=== PATIENT | male | born 1980 | race Caucasian/White ===

== ENCOUNTER 2019-08-25 08:19 | Outpatient (CLI) | payer OTHER, SELFPAY ==
[2019-08-25 09:10] LABS: Basophils Absolute Auto 0.1 K/mm3 (0.0-0.1); Basophils Percent Auto 0.6 % (0.2-1.2); Eosinophils Absolute Auto 0.2 K/mm3 (0-0.3); Eosinophils Percent Auto 2.1 % (0-4.4); Hemoglobin 14.5 g/dL (14.0-18.0); Immature Granulocyte Absolute 0.03 K/mm3 (0.00-0.031); Immature Granulocyte Percent A 0.3 % (0-0.5); Lymphocytes Absolute Auto 2.16 K/mm3 (0.9-3.2); Lymphocytes Percent Auto 24.9 % (18.3-44.2); Mean Corpuscular Hemoglobin 28.5 pg (26-34); Mean Corpuscular Volume 86.4 fl (80-100); Mean Platelet Volume 9.3 fl (7.4-10.4); Monocytes Absolute Auto 0.5 K/mm3 (0.1-0.6); Neutrophils Absolute Auto 5.7 K/mm3 (1.3-6.7); Neutrophils Percent Auto 66.1 % (45.5-73.1); Platelet Count Result 411 k/mm3 (150-375); Red Blood Count 5.09 M/mm3 (4.6-6.20); Red Cell Distribution Width 13.4 % (11.5-14.5); White Blood Count 8.7 K/mm3 (4.5-10.0)
[2019-08-25 09:22] LABS: Hemoglobin A1C 6.4 % (<5.7)
[2019-08-25 09:29] LABS: Alanine Aminotransferase 24 U/L (4-50); Albumin Level 4.6 g/dL (3.5-5.1); Alkaline Phosphatase 83 U/L (38-126); Aspartate Amino Transferase 29 U/L (17-59); Bilirubin,Total 0.4 mg/dL (0.2-1.3); Blood Urea Nitrogen 15 mg/dL (9-20); Calcium 9.4 mg/dL (8.4-10.2); Carbon Dioxide 31 mmol/L (22-30); Chloride 100 mmol/L (98-107); Cholesterol 194 mg/dL (0-200); Estimated Glomerular Filt Rate > 60; Glucose 127 mg/dL (75-110); HDL Direct 28 mg/dL; Potassium 4.6 mmol/L (3.4-5.0); Sodium 137 mmol/L (137-145); Triglycerides 202 mg/dL (<150)
[2019-08-25 09:33] LABS: LDL Cholesterol Direct 130 mg/dL
[2019-08-25 09:34] LABS: Creatinine Urine 99.3 mg/dL
[2019-08-25 09:42] LABS: MALB Creatinine Ratio < 6.0 mg/g (0-30); Microalbumin Urine Random < 6.0 mg/L (0-16.7)
== END 2019-08-25 08:20 | disposition home or self-care (01) ==
PROVIDERS: PCP Family Medicine; Visit Provider Family Medicine
DX: E61.1 Iron deficiency (principal); E11.9 Type 2 diabetes mellitus without complications; E78.5 Hyperlipidemia, unspecified
CPT/HCPCS: 36415; 80053; 80061; 82043; 83036; 84443; 85025

== ENCOUNTER 2019-09-30 21:59 | Emergency (ER) | payer OTHER, SELFPAY ==
--- NOTE | ~2019-09-30 | CT_ITS ---
EXAMINATION: CT abdomen pelvis w con DATE: 10/01/2019 01:21 INDICATION: Generalized abdominal pain. Nausea and vomiting. TECHNIQUE: Computed tomography (CT) of the abdomen and pelvis was performed with 100 mL Omnipaque 350 intravenous contrast. Automated exposure control and iterative reconstruction technique were employe d. The dose-length product was 1383.31 mGy-cm. COMPARISON: None. FINDINGS: The visualized portions of the lung bases demonstrate mild atelectasis. No pleural effusion . The heart size is normal. No pericardial effusion. The liver, gallbladder, spleen, pancreas, adrena l glands, and kidneys are normal. There is a 3 mm stone in distal right ureter. There is mild right h ydroureter. There is prominent fat in the inguinal canals that may be small hernias. There is promine nt fat in the umbilicus that may be a small hernia. There are no dilated loops of bowel. The appendix is normal. There are no pathologically enlarged lymph nodes. There is no free intraperitoneal fluid. There is mild thoracolumbar spondylosis. IMPRESSION: 1. 3 mm stone in distal right ureter with mild right hydroureter. I called this result to Dr. Yanet kelly on 10/01/19 at 7:16 AM. Reviewed, dictated and finalized at location A. IMPRESSION: 1. 3 mm stone in distal right ureter with mild right hydroureter. I called percy s result to Dr. White on 10/01/19 at 7:16 AM.
[2019-09-30 22:00] VITALS: BP 135/100; PULSE 88; RESP 16; TEMP 36.7; O2SAT 98
[2019-09-30 22:21] LABS: Basophils Absolute Auto 0.1 K/mm3 (0.0-0.1); Basophils Percent Auto 0.4 % (0.2-1.2); Eosinophils Absolute Auto 0.2 K/mm3 (0-0.3); Eosinophils Percent Auto 1.2 % (0-4.4); Hematocrit 42.6 % (42.0-52.0); Hemoglobin 14.2 g/dL (14.0-18.0); Immature Granulocyte Absolute 0.06 K/mm3 (0.00-0.031); Immature Granulocyte Percent A 0.4 % (0-0.5); Lymphocytes Percent Auto 29.3 % (18.3-44.2); Mean Corpuscular HGB Conc 33.3 g/dl (32-36); Mean Corpuscular Hemoglobin 28.9 pg (26-34); Mean Corpuscular Volume 86.6 fl (80-100); Mean Platelet Volume 9.4 fl (7.4-10.4); Monocytes Absolute Auto 0.8 K/mm3 (0.1-0.6); Monocytes Percent Auto 5.3 % (2.6-8.5); Neutrophils Absolute Auto 9.5 K/mm3 (1.3-6.7); Neutrophils Percent Auto 63.4 % (45.5-73.1); Platelet Count Result 381 k/mm3 (150-375); Red Blood Count 4.92 M/mm3 (4.6-6.20); Red Cell Distribution Width 13.8 % (11.5-14.5)
[2019-09-30 22:33] LABS: Alanine Aminotransferase 28 U/L (4-50); Albumin Level 4.7 g/dL (3.5-5.1); Alkaline Phosphatase 99 U/L (38-126); Aspartate Amino Transferase 29 U/L (17-59); Bilirubin,Total 0.3 mg/dL (0.2-1.3); Blood Urea Nitrogen 11 mg/dL (9-20); Calcium 9.2 mg/dL (8.4-10.2); Carbon Dioxide 32 mmol/L (22-30); Chloride 100 mmol/L (98-107); Estimated CRCL calculation 144 ml/min; Estimated Glomerular Filt Rate > 60; Glucose 129 mg/dL (75-110); Lipase 46 U/L (23-300); Potassium 4.1 mmol/L (3.4-5.0); Sodium 138 mmol/L (137-145)
[2019-09-30 23:42] LABS: Add Urine Microscopic? YES; Appearance Urine Clear (Clear); Bilirubin Urine Negative (Negative); Blood Urine 2+ (Negative); Color Urine Yellow (Yellow); Glucose Urine UA Negative (Negative); Ketones Urine Negative (Negative); Leukocyte Esterase Ur Negative LEU/UL (Negative); Mucus Urine Few /lpf; Nitrate Urine Negative (Negative); Protein Urine Negative (Negative); RBC Urine 0-2 /hpf (0-2); Specific Grav Ur 1.019 (1.001-1.035); Squamous Epithelial Cell Urine Rare /hpf (Few); Urobilinogen Urine Negative mg/dL (<2.0); WBC Urine 0-3 /hpf
--- NOTE | 2019-10-01 00:20 | ED.ABDPAIN ---
HPI - Abdominal Pain General Chief Complaint: Abdominal Pain Stated Complaint: severe abd pain History of Present Illness HPI narrative: Patient presents with abdominal pain since 5 PM. Started in the middle than it was the right upper quadrant and epigastric. He has had chills and sweats but no fever. He cannot remember his last BM, he usually takes Imodium for his irritable bowel. He has had vomiting. He currently has nausea. Surgeries include bone spurs on the right shoulder tonsillectomy and pilonidal cyst. MD elicited complaint: abdominal pain Pertinent past history: other (Irritable bowel) Related Data Home Medications Medication Instructions Recorded Confirmed eluxadoline 100 mg tablet 100 mg PO BID 08/25/19 08/25/19 Allergies Allergy/AdvReac Type Severity Reaction Status Date / Time No Known Allergies Allergy Verified 09/30/19 22:13 Review of Systems Review of Systems: Narrative: CONSTITUTIONAL: Denies fever, but has had chills, and sweats. EYES: Denies visual changes, redness, or discharge. ENT: Denies rhinorrhea, congestion, sore throat, or otalgia. CARDIOVASCULAR: Denies chest pain, palpitations, or edema. RESPIRATORY: Denies cough or dyspnea. GASTROINTESTINAL: Has had abdominal pain, nausea, vomiting, but not diarrhea. GENITOURINARY: Denies dysuria or hematuria. SKIN: Denies rash or itching. MUSCULOSKELETAL: Denies back pain, joint pain, or myalgia. NEUROLOGIC: Denies headache, numbness, or weakness. PSYCHIATRIC: Denies anxiety or depression. All systems reviewed & are unremarkable except as noted in HPI and below PMFSH Past Medical History Medical History Anxiety disorder, unspecified Family history of premature CAD Fracture of other part of scapula, right shoulder, sequela H/O pilonidal cyst Hyperlipidemia Hypertension Type 2 diabetes mellitus without complication, without long-term current use of insulin Surgical History Surgical History H/O shoulder surgery Hx of adenoidectomy Hx of tonsillectomy Social History Social History (Updated 10/01/19 @ 00:22 by Berta Beth MD) Smoking status: Never smoker Second hand tobacco smoke exposure: Yes Smoking end date: 05/06/09 Alcohol intake: current Substance use: current Substance use type: marijuana Gender identity (if verbalized by the patient): Male Exam Narrative: Exam Narrative: GENERAL: Well-appearing, well-nourished, and in no acute distress. Overweight HEAD: Normocephalic, atraumatic. EYES: PERRLA and EOMI. ENT: Nares clear, no rhinorrhea or epistaxis. Mucous membranes moist. NECK: Supple. CHEST: Clear to auscultation. No respiratory distress. HEART: Regular rate and rhythm. No murmur heard. Normal peripheral pulses. ABDOMEN: Soft, nontender, nondistended, normal active bowel sounds. EXTREMITIES: Normal range of motion. No edema. SKIN: Warm, dry, no rash. NEURO: No focal deficits. Alert and oriented x3. PSYCH: Normal mood and affect. Course Reevaluation(s) Reevaluation #1: I went in to talk to the patient about the results of his CAT scan. He still has some abdominal pain. He has been on antidepressants for years, and some can cause abdominal pain. I recommended she try Bentyl for the spasms, and possibly Reglan for the nausea. Reglan came up is contradicted with SSRIs. We told him that SSRIs can sometimes cause abdominal pain, and to consider a consult about this. I warned him not to take the Reglan on the SSRIs together. Date: 10/01/19 Time: 02:21 Vital Signs Vital signs: Vital Signs Temperature 98.1 F 09/30/19 22:00 Pulse Rate 16 L 09/30/19 22:00 Respiratory Rate 16 09/30/19 22:00 Blood Pressure 135/100 H 09/30/19 22:00 Pulse Oximetry 98 09/30/19 22:00 Temperature 98.1 F 09/30/19 22:00 Pulse Rate 16 L 09/30/19 22:00 Respiratory Rate 16 09/30/19 22:00 Blood Pressure
[2019-10-01] MEDS: SODIUM CHLORIDE 0.9% IV 1,000 ML 999 ML IV CONT (00:37)
[2019-10-01] MEDS: ONDANSETRON INJ 4 MG/2 ML VIAL IV PUSH (00:37)
[2019-10-01] MEDS: MORPHINE SULFATE 4 MG/ML INJ IV PUSH (00:40)
[2019-10-01 02:26] VITALS: BP 122/53; PULSE 62; RESP 14; O2SAT 97
[2019-10-01] MEDS: KETOROLAC 15 MG/ML VIAL (*BKC) IV PUSH (02:42)
== END 2019-10-01 02:50 | disposition home or self-care (01) ==
PROVIDERS: Emergency Provider Emergency Medicine; PCP Family Medicine
DX: K58.9 Irritable bowel syndrome, unspecified (principal); D72.829 Elevated white blood cell count, unspecified; N13.2 Hydronephrosis with renal and ureteral calculous obstruction; E78.5 Hyperlipidemia, unspecified; I10 Essential (primary) hypertension; E11.9 Type 2 diabetes mellitus without complications; F41.9 Anxiety disorder, unspecified
CPT/HCPCS: 36415; 74177; 80053; 81001; 83690; 85025; 96361; 96365; 96375; 99284; J1885; J2270; J2405; J2543; J7030; Q9967

== ENCOUNTER 2020-05-29 13:07 | Emergency (ER) | payer OTHER, SELFPAY ==
[2020-05-29 13:25] VITALS: BP 186/93; PULSE 81; RESP 18; TEMP 36.9; O2SAT 100
[2020-05-29 13:26] VITALS: BP 186/93; PULSE 81; RESP 18; TEMP 36.9; O2SAT 100
--- NOTE | 2020-05-29 13:27 | ED.BACK ---
HPI - Back Pain/Injury General Chief Complaint: Back Pain/Injury Stated Complaint: Back Pain Time Seen by Provider: 05/29/20 13:33 Source: patient and RN notes reviewed Mode of arrival: ambulatory Limitations: no limitations History of Present Illness HPI Narrative: 40-year-old male presents with concern for right low back pain. Reports 5 to 6 days ago he was pulling something heavy out of the ground when he felt mild pain in his low back, reports the symptoms have worsened over the week. Reports taking Tylenol, Advil, tramadol with little relief. He denies loss of bowel or bladder function, perianal anesthesia, weakness in extremity, fever, abdominal pain. Reports history of asthma, denies increased cough, shortness of breath. MD elicited complaint: back pain Related Data Home Medications Medication Instructions Recorded Confirmed albuterol sulfate 90 mcg INHALATION DIRECTED 05/29/20 05/29/20 paroxetine HCl 40 05/29/20 simvastatin 10 mg PO DAILY 05/29/20 Allergies Allergy/AdvReac Type Severity Reaction Status Date / Time No Known Allergies Allergy Verified 12/08/19 10:16 Review of Systems Review of Systems: Narrative: CONSTITUTIONAL: Denies malaise, chills, sweats, or fever. EYES: Denies visual changes, redness, or discharge. ENT: Denies rhinorrhea, congestion, sinus pain, otalgia or sore throat. CARDIOVASCULAR: Denies chest pain, palpitations, or edema. RESPIRATORY: Denies cough or dyspnea. GASTROINTESTINAL: Denies abdominal pain, nausea, vomiting, diarrhea, bloody, or mucous stools. GENITOURINARY: Denies dysuria or hematuria. SKIN: Denies bruising, redness MUSCULOSKELETAL: Reports right low back pain. Denies joint pain, or myalgia. NEUROLOGIC: Denies numbness, weakness, or headache. All systems reviewed & are unremarkable except as noted in HPI and below PMFSH Past Medical History Medical History (Updated 05/29/20 @ 13:42 by Michaelle Loving NP) Anxiety disorder, unspecified Family history of premature CAD Fracture of other part of scapula, right shoulder, sequela H/O pilonidal cyst Hyperlipidemia Hypertension Type 2 diabetes mellitus without complication, without long-term current use of insulin Surgical History Surgical History H/O shoulder surgery Hx of adenoidectomy Hx of tonsillectomy Family History Family History Mother Family history of mental disorder Hypertension Father Hypertension Family history of elevated blood lipids Social History Social History Smoking status: Current some day smoker Second hand tobacco smoke exposure: Yes Smoking end date: 05/06/09 Alcohol intake: current Substance use: current Substance use type: marijuana Gender identity (if verbalized by the patient): Male Comments At time of signature, agree with nursing past medical, surgical, social and family history. There is no relevant family history pertinent to the presenting complaint Exam Narrative: Exam Narrative: GENERAL: Well-appearing, well-nourished, and in no acute distress. HEAD: Normocephalic, atraumatic. EYES: PERRLA and EOMI. NECK: Supple. No lymphadenopathy. CHEST: Clear to auscultation. No respiratory distress. HEART: Regular rate and rhythm. Distal pulses palpable and equal, cap refill <3 seconds ABDOMEN: Soft, nontender, nondistended, normal active bowel sounds, no palpable or pulsatile masses. No CVA tenderness MUSCULOSKELETAL: Normal range of motion and strength in all extremities; 5/5 strength with hip flexion and extension, dorsiflexion and extension, knee flexion and extension, plantar flexion and extension. Normal sensation in dermatomal distributions with sensitivity to light touch and pain. No midline back tenderness to palpation. No paraspinal tenderness. Transfers from lying to sitting to standing.
== END 2020-05-29 13:45 | disposition home or self-care (01) ==
PROVIDERS: Emergency Provider Nurse Practitioner; PCP Family Medicine
DX: M54.5 Low back pain (principal); F17.200 Nicotine dependence, unspecified, uncomplicated; E78.5 Hyperlipidemia, unspecified; I10 Essential (primary) hypertension; E11.9 Type 2 diabetes mellitus without complications; J45.909 Unspecified asthma, uncomplicated
CPT/HCPCS: 99213; G0463

== ENCOUNTER 2020-07-12 08:02 | Outpatient (CLI) | payer OTHER, SELFPAY ==
--- NOTE | ~2020-07-12 | XR_ITS ---
EXAMINATION: XR shoulder LT min 2V DATE: 07/12/2020 08:16 INDICATION: Left shoulder pain. TECHNIQUE: 4 views of left shoulder were obtained. COMPARISON: None. FINDINGS: Bone alignment is normal. No fracture. Joint spaces are well maintained. IMPRESSION: 1. Normal left shoulder. Reviewed, dictated and finalized at location A. ANIC DRIVER IMPRESSION: 1. Normal left shoulder.
== END 2020-07-12 08:03 | disposition home or self-care (01) ==
LOC: ANHIMG 08:05
PROVIDERS: PCP Family Medicine; Visit Provider Family Medicine
DX: M25.512 Pain in left shoulder (principal)
CPT/HCPCS: 73030

== ENCOUNTER 2020-08-03 08:00 | Outpatient (CLI) | payer OTHER, SELFPAY ==
--- NOTE | ~2020-08-03 | NM_ITS ---
EXAMINATION: NM stress w perf spect multi DATE: 08/03/2020 11:33 INDICATION: Chest pain TECHNIQUE: Rest images were obtained following intravenous administration of 11.22 mCi Tc99m tetrofos min (Myoview). The patient performed an exercise activity. At peak exercise, 33.3 mCi Tc99m tetrofosm in (Myoview) was administered intravenously, and stress images were obtained. Data was reconstructed into short axis and horizontal and vertical long axis SPECT images. Gated SPECT images were also obta ined. COMPARISON: None. FINDINGS: There is normal left ventricular perfusion without definite evidence of reversible or fixed perfusion abnormality to suggest ischemia or infarction. There is normal left ventricular chamber size, wall motion and ejection fraction. Left ventricular ejection fraction measures 67%. IMPRESSION: 1. Normal myocardial perfusion at rest and during stress. 2. Left ventricular ejection fraction measuring 67%. Reviewed, dictated and finalized at location A.
--- NOTE | 2020-08-03 08:53 | EST_ITS ---
Patient Info Name: Karlie Gilliam Age: 40 years : 1980 Gender: Male Ht: 75 in Wt: 252 lbs BSA: 2.49 m2 HR: 57 bpm BP: 177 / 72 mmHg Exam Date: 08/03/2020 9:47 AM Exam Location: [facility] Stress Patient Status: Outpatient Admit Date: 08/03/2020 Staff Ordering Physician: Judah Pérez DO Attending Provider: Judah Pérez DO Exercise Technologist: Taylor Hodge CT Exercise Physician: Judah Pérez DO Exam Type: CA stress test treadmill w NM Study Info Indications R07.9 - Chest pain, unspecified A nuclear stress test was performed. Summary 1. 1. Negative Jack exercise stress test for ischemic ST changes by ECG criteria. 2. 2. Good functional capacity, achieving 12 METs of workload. 3. 3. Baseline hypertension with hypertensive response to exercise. 4. 4. Appropriate HR response to exercise. 5. 5. Appropriate HR recovery at 1 minute post exercise. 6. 6. Nuclear scan to follow and will be reported separately. Please correlate with it. 7. 6. Patient informed of the above results. Protocol: Jack Stress ECG Details Stage: REST Duration (min): 2 min : 42 sec Speed (mph): 0.0 Grade (%): 0 HR (bpm): 58 SBP (mmHg): 177 DBP (mmHg): 72 METS: --- Stage: REST Duration (min): 5 min : 51 sec Speed (mph): 0.0 Grade (%): 0 HR (bpm): 73 SBP (mmHg): 177 DBP (mmHg): 72 METS: --- Stage: STAGE 1 Duration (min): 1 min : 0 sec Speed (mph): 1.7 Grade (%): 10 HR (bpm): 87 SBP (mmHg): 177 DBP (mmHg): 72 METS: --- Stage: STAGE 1 Duration (min): 2 min : 0 sec Speed (mph): 1.7 Grade (%): 10 HR (bpm): 92 SBP (mmHg): 177 DBP (mmHg): 72 METS: --- Stage: STAGE 1 Duration (min): 3 min : 0 sec Speed (mph): 1.7 Grade (%): 10 HR (bpm): 92 SBP (mmHg): 177 DBP (mmHg): 72 METS: --- Stage: STAGE 2 Duration (min): 1 min : 0 sec Speed (mph): 2.5 Grade (%): 12 HR (bpm): 105 SBP (mmHg): 181 DBP (mmHg): 66 METS: --- Stage: STAGE 2 Duration (min): 2 min : 0 sec Speed (mph): 2.5 Grade (%): 12 HR (bpm): 110 SBP (mmHg): 197 DBP (mmHg): 69 METS: --- Stage: STAGE 2 Duration (min): 3 min : 0 sec Speed (mph): 2.5 Grade (%): 12 HR (bpm): 111 SBP (mmHg): 197 DBP (mmHg): 69 METS: --- Stage: STAGE 3 Duration (min): 1 min : 0 sec Speed (mph): 3.4 Grade (%): 14 HR (bpm): 121 SBP (mmHg): 206 DBP (mmHg): 68 METS: --- Stage: STAGE 3 Duration (min): 2 min : 0 sec Speed (mph): 3.4 Grade (%): 14 HR (bpm): 131 SBP (mmHg): 206 DBP (mmHg): 68 METS: --- Stage: STAGE 3 Duration (min): 3 min : 0 sec Speed (mph): 3.4 Grade (%): 14 HR (bpm): 132 SBP (mmHg): 215 DBP (mmHg): 65 METS: --- Stage: STAGE 4 Duration (min): 1 min : 0 sec Speed (mph): 4.2 Grade (%): 16 HR (bpm): 152 SBP (mmHg):
== END 2020-08-03 08:01 | disposition home or self-care (01) ==
PROVIDERS: PCP Family Medicine; Visit Provider Internal Medicine Cardiovascular Disease
DX: R07.89 Other chest pain (principal)
CPT/HCPCS: 78452; 93017; A9502

== ENCOUNTER 2020-08-23 09:44 | Outpatient (CLI) | payer OTHER, SELFPAY ==
--- NOTE | ~2020-08-23 | MR_ITS ---
EXAMINATION: MR shoulder LT wo con DATE: 08/23/2020 10:59 INDICATION: Left shoulder pain. TECHNIQUE: Magnetic resonance imaging (MRI) of the left shoulder was performed without intravenous co ntrast. Sequences included axial PD-weighted FS FSE, coronal oblique PD-weighted FS FSE, coronal obli que T2-weighted FS FSE, sagittal PD-weighted FS FSE, and sagittal T1-weighted SE. COMPARISON: None. FINDINGS: Coracoacromial arch: The acromion undersurface is curved in morphology (type II). Small anterior plantar calcaneal spur at the acromial insertion of the otherwise normal coracoacromial ligament. Minimal acromioclavicular os teoarthritis. Rotator cuff: The supraspinatus, infraspinatus and teres minor tendons are normal. The subscapularis tendon is norm al. Normal rotator cuff muscle bulk and signal. Biceps tendon, glenoid labrum and glenohumeral cartilage: Long head of the biceps tendon is normal. Glenoid labrum is normal. Glenohumeral cartilage is normal. Fluid: Physiologic amount of fluid in the glenohumeral joint and biceps tendon sheath. No loose osteochondra l bodies. No abnormally increased fluid in the subacromial/subdeltoid bursa to suggest bursitis. Bones/other: There is prominent marrow edema at the lateral head of the left clavicle which is disproportionate to the minimal osteoarthritis and which also spares the acromion which argues against a joint centered etiology. The trabecular pattern in the region of edema appears to remain intact on both the MRI imag es as well as the recent prior radiographs with no evident lytic or sclerotic bone lesions. 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 Otherwise normal marrow sign al throughout. No fracture. A few normal-sized left axillary lymph nodes. IMPRESSION: 1. Prominent marrow edema at the lateral head of the left clavicle as detailed above most suspicious for distal clavicular osteolysis which can be due to prior trauma or repetitive microtrauma as can be seen with manual labor or weight lifting. Reviewed, dictated and finalized at location A. IMPRESSION: 1. Prominent marrow edema at the lateral head of the left clavicle as detailed above most suspicious for distal clavicular osteolysis which can be due to prio r trauma or repetitive microtrauma as can be seen with manual labor or weight l ifting.
== END 2020-08-23 09:45 | disposition home or self-care (01) ==
PROVIDERS: PCP Family Medicine; Visit Provider Orthopaedic Surgery
DX: G56.00 Carpal tunnel syndrome, unspecified upper limb (principal); M25.512 Pain in left shoulder; M79.89 Other specified soft tissue disorders
CPT/HCPCS: 73221

== ENCOUNTER → 2020-09-26 03:35 | Outpatient (CLI) | payer OTHER, SELFPAY ==
[2020-09-28 13:00] LABS: SARS-CoV-2 RNA PCR Negative
== END ==
PROVIDERS: PCP Family Medicine; Visit Provider Orthopaedic Surgery
DX: Z01.812 Encounter for preprocedural laboratory examination (principal); Z20.822 Contact with and (suspected) exposure to COVID-19
CPT/HCPCS: 36415; 80048; C9803; U0003; U0005

== ENCOUNTER 2020-09-26 08:46 | Outpatient (CLI) | payer OTHER, SELFPAY ==
[2020-09-26 09:21] LABS: Anion Gap 5 mmol/L (8-16); Blood Urea Nitrogen 12 mg/dL (9-20); Calcium 9.5 mg/dL (8.4-10.2); Carbon Dioxide 28 mmol/L (22-30); Chloride 105 mmol/L (98-107); Estimated Glomerular Filt Rate > 60; Glucose 98 mg/dL (75-110); Potassium 4.2 mmol/L (3.4-5.0); Sodium 138 mmol/L (137-145)
== END 2020-09-26 08:47 | disposition home or self-care (01) ==
LOC: ANHSURGERY 08:51
PROVIDERS: Anesthesiology; PCP Family Medicine; Visit Provider Orthopaedic Surgery
DX: E11.9 Type 2 diabetes mellitus without complications (principal); Z01.818 Encounter for other preprocedural examination
CPT/HCPCS: 36415; 80048

== ENCOUNTER 2020-09-29 00:45 | Day surgery (SDC) | payer OTHER, SELFPAY ==
[2020-09-23 10:06] VITALS: BMI 34.4
--- NOTE | 2020-09-28 10:31 | WPDANESEPPF ---
Anes - Initial Pre Proc Eval Procedure: Operation Date: 09/29/20 10:30 Proposed Procedures p Open Reduction Internal Fixation Bimalleolar Fracture, Right Ankle - William Salmeron MD Date/Time: 09/28/20 10:31 Surgeon: William Salmeron MD Pre Op Diagnosis: bimalleloar right ankle fx Patient Data Age: 40 Gender: M Height: 1.83 m Weight: 115.21 kg Allergies Allergy/AdvReac Type Severity Reaction Status Date / Time No Known Allergies Allergy Verified 09/29/20 09:01 Home Medications Medication Instructions Recorded Confirmed Type methylcellulose (laxative) 500 mg 500 mg PO BID 06/28/20 09/23/20 History tablet omeprazole 40 mg capsule,delayed 40 mg PO DAILY #90 cap 06/28/20 09/23/20 Rx release albuterol sulfate 90 mcg/actuation 2 puff INHALATION Q4-6H PRN g 08/15/20 09/23/20 History aerosol inhaler aspirin 81 mg chewable tablet 81 mg PO DAILY 08/15/20 09/23/20 History blood sugar diagnostic #100 ea 08/15/20 Rx blood-glucose meter #1 ea 08/15/20 History eluxadoline 100 mg tablet 100 mg PO BID 08/15/20 09/23/20 History sildenafil 100 mg tablet 100 mg PO DAILY PRN #30 tablet 08/16/20 09/23/20 Rx alprazolam 1 mg tablet 1 mg PO BID PRN #60 tablet 09/19/20 09/23/20 Rx metformin 500 mg PO DAILY 09/23/20 09/23/20 History metoprolol succinate 25 mg PO DAILY 09/23/20 09/23/20 History paroxetine HCl 40 mg PO DAILY 09/23/20 09/23/20 History simvastatin 20 mg PO HS 09/23/20 09/23/20 History oxycodone-acetaminophen 5 mg-325 1 - 2 tablet PO Q4-6H PRN #40 09/24/20 09/24/20 Rx mg tablet tablet Patient hx anesthesia problems: none Family hx anesthesia problems: none PMFSH Past Medical History Medical History (Updated 09/28/20 @ 10:31 by Damian Carlson DO) Anxiety disorder, unspecified Asthma Chest pain Chest pain at rest Diabetes Diarrhea Dyslipidemia Essential (primary) hypertension Family history of premature CAD Fracture of other part of scapula, right shoulder, sequela H/O pilonidal cyst Hyperlipidemia Hypertension Obesity Sleep apnea Smoking Tobacco abuse Type 2 diabetes mellitus without complication, without long-term current use of insulin Surgical History Surgical History (Updated 08/15/20 @ 08:30 by Jillian Gillespie MA) H/O shoulder surgery Rt shoulder Hx of adenoidectomy Hx of tonsillectomy Family History Family History Mother Family history of mental disorder Hypertension Father Hypertension Family history of elevated blood lipids Social History Social History Smoking packs per day: 1 Smoking cigarettes per day: 20.0 Years smoked: 10 Smoking pack-years: 10.00 Smoking status: Current every day smoker Tobacco type: cigarettes Second hand tobacco smoke exposure: Yes Smoking end date: 05/06/09 Alcohol intake: current Drinks per week: 1 Alcohol use details: 5/MONTH Substance use: current Substance use type: marijuana Last use: 09/19/20 Living arrangements: with family Gender identity (if verbalized by the patient): Male Spiritual care concerns: No Agree to blood products: Yes Anes - Eval Final PreProcedure Day of Procedure 09/28/20 10:31 Patient weight: obese Heart: regular rate and rhythm Lungs: clear to auscultation and normal air movement Airway: Mallampati scale class II Neurological: alert and oriented Last oral intake: >/= 8 hours ASA classification: III Emergent: no Anesthetic plan: proceed Anesthesia type and monitoring: general LMA and standard monitoring Informed Consent: The patient's anesthetic plan and its attendant risks and benefits were discussed with the patient/family/POA. Questions were solicited and answers provided to the satisfaction of the patient/family/POA.
[2020-09-29] VITALS (10 sets, daily range): BP systolic 119–155; BP diastolic 60–90; PULSE 55–70; RESP 12–20; TEMP 36.2; O2SAT 97–100; BMI 33.9
--- NOTE | ~2020-09-29 | XR_ITS ---
EXAMINATION: XR surgery orthopedic DATE: 09/29/2020 13:19 INDICATION: ORIF right bimalleolar fracture. TECHNIQUE: 3 fluoroscopic spot images of the right ankle were obtained during procedure performed by Dr. Salmeron. Radiologist was not present for the imaging or procedure. The amount of fluoroscopy t rosalba used during this procedure was 1.8 minutes. COMPARISON: 09/22/2020 FINDINGS: Interval open reduction internal fixation of the Christiansen C bimalleolar fractures at the right ankle whi ch is now in near-anatomic alignment. The medial malleolar fractures fixed with a pair of cannulated lag screws. The distal metadiaphyseal fracture of the fibula is fixed with an interfragmentary screw and lateral plate and screws. No addition there is a tightrope type syndesmotic fixation with metalli c buttons at the medial side of a lucent tract extending across the distal tibial and fibular metaphy seal regions. Congruent ankle mortise with normal joint space. IMPRESSION: 1. Essentially anatomic alignment post open reduction internal fixation of the right ankle bimalleola r fracture. Reviewed, dictated and finalized at location A. IMPRESSION: 1. Essentially anatomic alignment post open reduction internal fixation of the right ankle bimalleolar fracture.
--- NOTE | 2020-09-29 07:53 | WPDANESPNB ---
Anes - Peripheral Nerve Block Date/Time: 09/29/20 07:53 I have discussed with the patient/family/POA the placement of a peripheral nerve block for post-operative pain management, including associated risks, benefits, complications, and side effects. Alternative methods of post-operative analgesia were detailed. Questions were solicited and answers provided to the satisfaction of the patient/family/POA. Time-Out: A pre-procedural Time-Out was completed immediately before starting the procedure and confirmed: Patient Identification, Site, Procedure, Patient Position and the Availability of Requisite Equipment. Clinical Indications: Acute post-operative pain management requested by the operative surgeon. Nerve Block Insertion Note Anes-nerve block: posterior fossa sciatic left and adductor canal left Patient position: supine (for adductor canal) and other (right lateral for popliteal) Skin prep: chlorhexidine Needle: 22 gauge, stimulating, insulated echogenic needle. Needle length: 80 mm Technique: nerve stimulation lost at (mA) (for popliteal lost at 0.2) and ultrasound Injectate: bupivacaine 0.5% with epi 5 mcg/ml (20 mL for popliteal, 10 mL for adductor canal (no epi)) Observations: tolerated well Complications: none Procedure start time:: 1112 Procedure end time:: 111
[2020-09-29] MEDS: ACETAMINOPHEN 500 MG TABLET 1000 MG PO (09:11)
[2020-09-29] MEDS: LACTATED RINGERS 1,000 ML 30 ML IV CONT ×2 (09:19→13:38)
[2020-09-29] MEDS: KETOROLAC 15 MG/ML VIAL (*BKC) IV PUSH (09:23)
--- NOTE | 2020-09-29 09:25 | SUR.PREOP ---
3903- Call to Dr. Salmeron to clarify if he would like patient's splint removed from right lower extremity for procedure and shave/scrub to be performed. Per Dr. Salmeron remove splint and prep right ankle with shave and scrub.
[2020-09-29 09:34] LABS: Glucose Point of Care 118 mg/dl (65-105)
--- NOTE | 2020-09-29 10:00 | SUR.PREOP ---
1000- Notified patient Karlie and spouse Florence that OR is running approximately 30 minutes behind. Patient and spouse verbalized understanding.
--- NOTE | 2020-09-29 11:06 | WPDHPUPDATE1 ---
History and Physical Update Update Date/Time: 09/29/20 11:06 History and Physical has been reviewed, including an updated exam of the patient. Swelling is mild to moderate. He has an 3.5 mm diameter area of macerated skin on the plantar aspect of the heel slightly posteromedial. No erythema. Patient advise of the condition, and instructed to avoid any pressure on the heel during the postoperative period. Risks, benefits, and alternatives have been discussed and questions answered. Patient agrees to proceed with procedure.
[2020-09-29] MEDS: ceFAZolin 2 GM/D5W 50 ML 2 GM/50 ML BAG IVPB (11:41)
--- NOTE | 2020-09-29 16:03 | W.PM.PROC2 ---
Procedure Note - Detailed Date of Procedure 09/29/20 Pre-op Diagnosis 1. Bimalleolar right ankle fx-dislocation 2. Tibia-fibula syndesmosis sprain Post-op Diagnosis same Procedure Performed 1. Open reduction and internal fixation of the right ankle bimalleolar fracture with fixation of the lateral and medial malleoli 2. Open reduction and internal fixation of the tibia fibula syndesmosis with 2 tight rope suture buttons. Surgeon William Salmeron MD P[employer] Creasing Machine Operator Sariah Huddleston PA-C Anesthesia general and regional Description of Procedure A general anesthetic was administered. The limb was prepped and draped in the usual sterile fashion with a well-padded tourniquet high on the thigh. A bump was placed under the hip. The limb was exsanguinated and the tourniquet inflated to 300 millimeters of mercury during the procedure. A longitudinal incision was created at the distal fibula. Careful dissection was carried down to bone. Perineal nerve branches were protected. The fracture was carefully exposed. Callus and debris was irrigated from the wound. The fracture was brought out to length. Reduction was accomplished with the reduction forceps. An A-P lag screw was placed. The fixation plate fit anatomically. Fixation was performed with a combination of cortical and cancellous screws. The medial malleolus was exposed with a longitudinal incision. The fracture was cleared of debris and irrigated. Anatomic reduction was obtained with the reduction tool. Biplanar fluoroscopy was used to assess the fracture reduction and guide placement of the K-wire. Two K-wires were placed parallel across the fracture site. The screw lengths were measured and drilled distally only. The long, partially threaded screws were placed, and the K-wires removed. The tibia -fibula syndesmosis was confirmed to be unstable; primarily dynamically. A syndesmosis tight rope was placed through the fibular plate across the syndesmosis. The button was deployed medially on the bone. The sutures were secured and cut flush with the button. Fluoroscopy was used throughout the procedure to confirm anatomic reduction and appropriate placement of the implants. The tourniquet was released. Meticulous hemostasis was obtained. Wound was closed in layers with 2-0 Vicryl suture 3-0 Monocryl suture and bonita. A sterile splint with padding was applied. The patient was extubated and brought to the recovery room in stable condition. There were no complications. Implants Arthrex distal fibular anatomic plate. Single AP lag screw. Arthrex syndesmosis tight rope button fixation. 4.0 mm cannulated screws x2 medially at 40 mm length. Estimated Blood Loss 20 Drains No Complications No immediate complications Condition stable Disposition same day
[2020-10-04 09:35] LABS: Glucose Point of Care 98 mg/dl (65-105)
== END 2020-09-29 15:54 | disposition home or self-care (01) ==
PROVIDERS: PCP Family Medicine; Visit Provider Orthopaedic Surgery
PROC: (CPT 27814; principal; 2020-09-29 10:30)
DX: S82.841A Displaced bimalleolar fracture of right lower leg, initial encounter for closed fracture (principal); S93.431A Sprain of tibiofibular ligament of right ankle, initial encounter; G89.18 Other acute postprocedural pain; X58.XXXA Exposure to other specified factors, initial encounter; I10 Essential (primary) hypertension; E11.9 Type 2 diabetes mellitus without complications; E78.5 Hyperlipidemia, unspecified; J45.909 Unspecified asthma, uncomplicated; F41.9 Anxiety disorder, unspecified; G47.30 Sleep apnea, unspecified; F17.210 Nicotine dependence, cigarettes, uncomplicated; F12.90 Cannabis use, unspecified, uncomplicated; E66.9 Obesity, unspecified; Z68.39 Body mass index [BMI] 39.0-39.9, adult; Z79.51 Long term (current) use of inhaled steroids; Z79.84 Long term (current) use of oral hypoglycemic drugs; Z79.891 Long term (current) use of opiate analgesic
CPT/HCPCS: 64447; 64445; 27814; 27829; 82948; A9270; C1713; C1769; J0690; J1170; J1885; J2250; J2704; J3010; J7120

== ENCOUNTER 2021-03-13 17:00 | Outpatient (RCR) | payer OTHER, SELFPAY ==
--- NOTE | 2021-01-31 17:31 | PTOPEVAL ---
PHYSICAL THERAPY EVALUATION AND PLAN OF CARE Thank you for referring Karlie Gilliam to [facility].? The patient is scheduled to be seen for therapy?1x/week for 6 weeks. Please review, sign, date and return this plan of care CAITLIN. I agree with and certify that the following plan of care is medically necessary. Referring Physician Date Attending Provider: William Salmeron MD Evaluation Outpatient Past Medical History Neurological History Hx Neurological Disorders No Significant History Cardiovascular History Hx Hypercholesterolemia Yes Hx Hypertension Yes Respiratory History Hx Asthma Yes Hx Sleep Apnea Yes: WEARS CPAP Gastrointestinal History Hx Gastroesophageal Reflux Disease Yes Hx Irritable Bowel Yes Genitourinary History Hx Genitourinary Disorders No Significant History Musculoskeletal History Hx Crutches or Walker Use Yes: CRUTCHES Query Text:If Yes, Enter Crutches, Walker, or Both in the Comment Hx Fractures Yes: RT ANKLE, RT SHOULDER Hx Orthopedic Surgery Yes: RT SHOULDER Hx Other Musculoskeletal Disorders Yes: CARPAL TUNNEL SYNDROME, LT SHOULDER BONE SPUR Hematological History Hx Hematological Disorders No Significant History Endocrine History Hx Diabetes Yes HEENT History Hx Tonsillectomy Yes Integumentary History Hx Skin Disorders No Significant History Reproductive History Hx Reproductive Disorders No Significant History Psychosocial History Hx Anxiety Yes Hx Depression Yes Pain History History of Any Previous or Ongoing No Significant History Instance of Pain Anesthesia History Hx Anesthesia Reactions No Significant History Diagnosis left shoulder pain Onset 06/2020 Subjective Information Is here today for complaint of Query Text:As Reported By Patient/ left shoulder pain diagnosed Family as an impingement. Limited range of motion that is painful and limited ADLs. Dressing is difficult and painful and lifting items is difficult and painful. prefers to hold hands overhead Self Report Pain Assessment Left Shoulder(s) Reported Pain Level 3 Pain Description Sharp,Stabbing Greatest Pain Intensity 5 Pain Score Pain Score 3: Self Report Interventions Used Interventions Used By Clinicians Exercise Pain Relief Interventions Used By Inactivity/Rest Patient Upper Extremity Range of Motion Scapular/ Shoulder Range of Motion Left S
--- NOTE | 2021-02-20 16:55 | PCPTNOTE ---
Patient did not show up for scheduled appointment this date; called patient who answered the phone stating he forgot reminded for next appointment.
--- NOTE | 2021-03-13 17:32 | PTOPEVAL ---
PHYSICAL THERAPY DISCHARGE NOTE Thank you for referring Karlie Gilliam to [facility].? Please review, sign, date and return this plan of care CAITLIN. I agree with and certify that the following plan of care is medically necessary. Referring Physician Date Attending Provider: William Salmeron MD Discharge Diagnosis left shoulder pain Onset 06/2020 Subjective Information Still has some difficulty Query Text:As Reported By Patient/ getting clothes on - Family especially over head dressing; still has pain depending on what he is doing. States that it is doing better than prior to therapy. Self Report Pain Assessment Left Shoulder(s) Reported Pain Level 1 Pain Description Sharp,Stabbing Pain Score Pain Score 1: Self Report Interventions Used Interventions Used By Clinicians Exercise,Manual Therapy Techniques Pain Relief Interventions Used By Inactivity/Rest,Medication Patient Upper Extremity Range of Motion Scapular/ Shoulder Range of Motion Left Shoulder Flexion - Active 150 Shoulder Abduction - Active 140 Shoulder Medial Rotation - Active L3 Query Text:Reach Behind the Back Shoulder Lateral Rotation - Active T2 Query Text:Reach Behind the Head Scapular/Shoulder Range of Motion painful at end range Comments Upper Extremity Muscle Strength Testing Scapular/Shoulder Left Shoulder Flexion Strength 4+ Good + Shoulder Abduction Strength 4+ Good + Shoulder Medial Rotation Strength 5 Normal Shoulder Lateral Rotation Strength 5 Normal General Exercise General Exercises Side Left Exercise Location shoulder Exercise Type Active,Resistive,Stretching Exercise Description -pulleys behind the back Query Text:Record Sets, Reps, internal rotation [id number] Resistance, and Position -supine on full foam roll: pec stretch and alternating shoulder flexion -right sidelying arm sweep x8 reps -sidelying sleeper stretch on left Bike Exercise Bike Extremity Bilateral Upper Type of Bike Airdyne Duration (minutes) 4 Manual Therapy Manual Therapy Side Left Manual Therapy Location Shoulder Patient Position Supine Manual Therapy Treatment Grade 3 Mobilization,Grade 4 Mobilization Manu
== END 2021-03-14 11:51 | disposition home or self-care (01) ==
LOC: ANHPT 17:00
PROVIDERS: PCP Family Medicine; Visit Provider Orthopaedic Surgery
DX: M25.512 Pain in left shoulder (principal)
CPT/HCPCS: 97110; 97140; 97162

== ENCOUNTER 2021-04-04 01:17 | Day surgery (SDC) | payer OTHER, SELFPAY ==
[2021-03-24 10:55] VITALS: BMI 35.2
--- NOTE | 2021-03-24 10:59 | PC.NURSE ---
Report to the Outpatient Waiting Room, entrance under the green pavilion located off [facility], at time 0830 on date 04/04/21. OR Time: 1030. - You and your visitor will be asked a series of questions to screen for COVID 19 for your protection. - A mask is required within the hospital. - Only one visitor is allowed at this time. Patient visitors will be guided where to wait when not with patient. Preoperative COVID Testing Requirements: No COVID Test needed if: (proof is required; if not received patient will have Rapid Test prior to entry) - Patient has received COVID Vaccine at least 14 days prior to procedure date or - Patient has positive COVID test result within last 90 days of surgery date. COVID Test needed if above criteria is not met If not COVID vaccinated a COVID test must be conducted within 72 hours of surgery and patient is asked to isolate self from time of testing until procedure. You will go to the [employer] [facility] for your COVID testing. The [employer] [facility] site is located at the corner of [address] [facility]. You will only be called if COVID results are positive and your surgeon may reschedule your elective surgery date. Patients may have clear liquids (water, carbonated beverages, clear teas, apple juice) until 3 hours prior to surgery with a maximum of 20 ounces. - No food from midnight until time of surgery - Infants may have breast milk until 4 hours before surgery, infant formula 6 hours prior to surgery. - Children will be allowed to drink immediately following surgery. If applicable, please bring a bottle or sippy cup to assist with drinking. Juice, water, soda, and popsicles are readily available. For infants on formula, please bring formula the day of surgery. Pacifiers are allowed. Take the following medications with a SIP of water the morning of surgery: ALBUTEROL, XANAX, METOPROLOL, PAROXETINE Medications to discontinue per physician: ASPIRIN Date to take last dose: 03/27/21 (PER DR. RIZZO) Please no make-up, nail luxembourger, hairspray, perfume, deodorant, or body powder the day of surgery. No jewelry (including any body piercings) or valuables the day of surgery, leave them at home. Please take a shower or bath the night before, or the morning of, surgery with an antibacterial soap. Wear comfortable, loose fitting clothing. Children are encouraged to wear pajamas. - Jewelry must be removed prior to entering the operating room. Rings and piercings that are not removed may be cut off. - The hospital will not accept responsibility for valuables. - Please leave all valuables, including medications, at home the day of surgery. If you are going home after surgery, a licensed paratransit driver must drive you home. - NO public transportation without another adult. - We recommend that an adult stay with you for 24 hours following discharge. - We also recommend that you do not drive, make important decision, drink alcoholic beverages, or take any drugs that were not prescribed by your health care provider for at least 24 hours after your discharge time. For Pediatric surgeries, we recommend two adults accompany the child home (only one inside the building at this time). Follow any additional instructions given to you from your surgeon. Telephone instructions given to UNA SHAW and asked if any additional questions and then verbalized understanding. Patient advised to call surgeon office or pre surgery nurse liaison [phone] if any additional questions.
--- NOTE | 2021-04-03 13:08 | WPDANESEPPF ---
Anes - Initial Pre Proc Eval Procedure: Operation Date: 04/04/21 10:30 Proposed Procedures p Left Shoulder Arthroscopic Subacromial Decompression, Distal Clavicle Excision - William Salmeron MD Date/Time: 04/03/21 13:08 Surgeon: William Salmeron MD Pre Op Diagnosis: left rotator cuff impingement syndrome Patient Data Age: 41 Gender: M Height: 1.83 m Weight: 118 kg Allergies Allergy/AdvReac Type Severity Reaction Status Date / Time No Known Allergies Allergy Verified 04/04/21 08:43 Home Medications Medication Instructions Recorded Confirmed Type methylcellulose (laxative) 500 mg 500 mg PO BID 06/28/20 04/04/21 History tablet albuterol sulfate 90 mcg/actuation 2 puff INHALATION Q4-6H PRN g 08/15/20 04/04/21 History aerosol inhaler aspirin 81 mg chewable tablet 81 mg PO DAILY 08/15/20 04/04/21 History blood sugar diagnostic #100 ea 08/15/20 03/20/21 Rx simvastatin 20 mg tablet 20 mg PO HS #90 tablet 11/01/20 04/04/21 Rx sildenafil 100 mg tablet 100 mg PO DAILY PRN #30 tablet 01/27/21 03/24/21 Rx omeprazole 40 mg capsule,delayed 40 mg PO DAILY #90 cap 02/13/21 04/04/21 Rx release metoprolol succinate 25 mg 25 mg PO DAILY #90 tablet 02/23/21 04/04/21 Rx tablet,extended release 24 hr paroxetine HCl 40 mg tablet 40 mg PO DAILY #90 tablet 02/23/21 04/04/21 Rx metformin 500 mg tablet,extended See Rx Instructions .ROUTE 03/10/21 04/04/21 Rx release 24 hr .COMPLEX #90 tablet alprazolam 1 mg tablet 1 mg PO .q12hr PRN #60 tablet 03/27/21 04/04/21 Rx blood-glucose meter See Rx Instructions .ROUTE 03/31/21 Rx .COMPLEX #1 ea Patient hx anesthesia problems: none Family hx anesthesia problems: none Results Review: All pre-operative results and documents have been reviewed as part of the pre-operative evaluation. [facility] Past Medical History Medical History Anxiety disorder, unspecified Asthma Chest pain Chest pain at rest Diabetes Diarrhea Dyslipidemia Essential (primary) hypertension Family history of premature CAD Fracture of other part of scapula, right shoulder, sequela H/O pilonidal cyst Hyperlipidemia Hypertension Obesity Sleep apnea Smoking Tobacco abuse Type 2 diabetes mellitus without complication, without long-term current use of insulin Surgical History Surgical History H/O shoulder surgery Rt shoulder Hx of adenoidectomy Hx of tonsillectomy Family History Family History Mother Family history of mental disorder Hypertension Father Hypertension Family history of elevated blood lipids Social History Social History Smoking packs per day: 1 Smoking cigarettes per day: 20.0 Years smoked: 20 Smoking pack-years: 20.00 Smoking status: Current every day smoker Tobacco type: cigarettes Second hand tobacco smoke exposure: Yes Smoking end date: 05/06/09 Alcohol intake: current Drinks per week: 1 Alcohol use details: 5/MONTH Substance use: current Substance use type: marijuana Last use: 03/24/21 Living arrangements: with family Gender identity (if verbalized by the patient): Male Spiritual care concerns: No Agree to blood products: Yes Anes - Eval Final PreProcedure Day of Procedure 04/03/21 13:08 Patient weight: obese Heart: regular rate and rhythm Lungs: clear to auscultation and normal air movement Airway: Mallampati scale class II Neurological: alert and oriented Last oral intake: >/= 8 hours ASA classification: III Emergent: no Anesthetic plan: proceed Anesthesia type and monitoring: general ETT and standard monitoring Results Review: All pre-operative results and documents have been reviewed as part of the pre-operative evaluation. Informed Consent: The patient's anesthetic plan
[2021-04-04] VITALS (11 sets, daily range): BP systolic 122–157; BP diastolic 60–75; PULSE 56–87; RESP 16–20; TEMP 36.3–36.9; O2SAT 96–100
[2021-04-04] MEDS: ACETAMINOPHEN 500 MG TABLET 1000 MG PO (08:46)
[2021-04-04] MEDS: KETOROLAC 15 MG/ML VIAL (*BKC) IV PUSH (09:17)
[2021-04-04] MEDS: LACTATED RINGERS 1,000 ML 30 ML IV CONT ×2 (09:17→12:28)
--- NOTE | 2021-04-04 09:45 | WPDHPUPDATE1 ---
History and Physical Update Update Date/Time: 04/04/21 09:45 History and Physical has been reviewed, including an updated exam of the patient. There are NO changes in the patient's condition. Risks, benefits, and alternatives have been discussed and questions answered. Patient agrees to proceed with procedure.
[2021-04-04 09:55] LABS: Anion Gap 8 mmol/L (8-16); Blood Urea Nitrogen 12 mg/dL (9-20); Calcium 9.3 mg/dL (8.4-10.2); Carbon Dioxide 25 mmol/L (22-30); Chloride 105 mmol/L (98-107); Estimated CRCL calculation 183 ml/min; Estimated Glomerular Filt Rate > 60; Glucose 157 mg/dL (65-110); Potassium 4.3 mmol/L (3.4-5.0); Sodium 138 mmol/L (137-145)
--- NOTE | 2021-04-04 09:58 | WPDANESPNB ---
Anes - Peripheral Nerve Block Date/Time: 04/04/21 09:58 I have discussed with the patient/family/POA the placement of a peripheral nerve block for post-operative pain management, including associated risks, benefits, complications, and side effects. Alternative methods of post-operative analgesia were detailed. Questions were solicited and answers provided to the satisfaction of the patient/family/POA. Time-Out: A pre-procedural Time-Out was completed immediately before starting the procedure and confirmed: Patient Identification, Site, Procedure, Patient Position and the Availability of Requisite Equipment. Clinical Indications: Acute post-operative pain management requested by the operative surgeon. Nerve Block Insertion Note Anes-nerve block: interscalene left Patient position: supine Skin prep: chlorhexidine Needle: 22 gauge, stimulating, insulated echogenic needle. Needle length: 50 mm Technique: ultrasound Injectate: bupivacaine 0.5% with epi 5 mcg/ml (30cc- no epi) Observations: tolerated well Complications: none
[2021-04-04] MEDS: ceFAZolin 2 GM/D5W 50 ML 2 GM/50 ML BAG IVPB (10:26)
--- NOTE | 2021-04-04 12:20 | W.PM.PROC2 ---
Procedure Note - Detailed Date of Procedure 04/04/21 Pre-op Diagnosis 1. AC joint arthrosis, left shoulder 2. Left shoulder impingement syndrome Post-op Diagnosis same Procedure Performed Left shoulder 1. Arthroscopic distal clavicle excision 2. Arthroscopic subacromial decompression with acromioplasty Surgeon William Salmeron MD Anesthesia general and regional Description of Procedure The patient was given an interscalene block in the holding area. Preoperative antibiotics were given. The patient was brought to the operating room. Careful positioning in the beach chair was accomplished. The head neck were carefully positioned. A small bump was placed under the left shoulder. The shoulder was examined. The shoulder was prepped and draped in the usual sterile fashion. Standard posterior and anterior arthroscopic portals were established. The shoulder was inspected. There were no abnormal findings. Attention was turned to the subacromial space. A complete bursectomy was performed. An accessory lateral portal was created. The rotator cuff appeared normal. Perhaps some very mild superficial fraying. Slight downsloping of the acromion. Several subdeltoid bursal adhesions were debrided. The acromion was clearly visualized. The coracoacromial ligament was released. Careful acromioplasty was performed utilizing views from both lateral and posterior. The distal end of the clavicle was exposed. Approximately 8 mm debridement was performed. Care was taken to protect the superior ligaments, while removing any superior bone from the clavicle. Loose bone fragments were carefully irrigated from the joint. The arthroscopic instruments were removed. The wounds were closed with interrupted 3-0 Monocryl suture followed by Steri-Strips. A sterile dressing was applied with a sling. The patient was extubated and brought to the recovery room in stable condition. There were no complications. Estimated Blood Loss -10.0 Pathology none sent Complications No immediate complications Condition stable Disposition PACU
[2021-04-04] MEDS: fentaNYL CITRATE INJ (*CRX) 100 MCG/2 ML VIAL 25 MCG IV PUSH (13:46)
[2021-04-04] MEDS: oxyCODONE HCL (*CRX) 5 MG TAB IR PO (13:49)
== END 2021-04-04 14:46 | disposition home or self-care (01) ==
PROVIDERS: Anesthesiology; PCP Family Medicine; Visit Provider Orthopaedic Surgery
PROC: (CPT 29805; principal; 2021-04-04 10:30)
DX: M19.012 Primary osteoarthritis, left shoulder (principal); M75.42 Impingement syndrome of left shoulder; G89.18 Other acute postprocedural pain; I10 Essential (primary) hypertension; E11.9 Type 2 diabetes mellitus without complications; E78.5 Hyperlipidemia, unspecified; G47.30 Sleep apnea, unspecified; J45.909 Unspecified asthma, uncomplicated; F41.9 Anxiety disorder, unspecified; F17.210 Nicotine dependence, cigarettes, uncomplicated; E66.9 Obesity, unspecified; Z68.35 Body mass index [BMI] 35.0-35.9, adult; Z79.51 Long term (current) use of inhaled steroids; Z79.84 Long term (current) use of oral hypoglycemic drugs; Z79.82 Long term (current) use of aspirin
CPT/HCPCS: 29824; 64415; 36415; 80048; A4565; A9270; J0690; J1100; J1885; J2250; J2405; J2704; J3010; J7120

== ENCOUNTER 2021-05-16 17:00 | Outpatient (RCR) | payer OTHER, SELFPAY ==
[2021-04-11 13:35] VITALS: BP_SYST 105
--- NOTE | 2021-04-11 14:09 | PTOPEVAL ---
PHYSICAL THERAPY EVALUATION AND PLAN OF CARE Thank you for referring Karlie Gilliam to [facility].? The patient is scheduled to be seen for therapy? 1x/week for 5 weeks. Please review, sign, date and return this plan of care CAITLIN. I agree with and certify that the following plan of care is medically necessary. Referring Physician Date Attending Provider: William Salmeron MD Evaluation Outpatient Past Medical History Cardiovascular History Hx Hypercholesterolemia Yes Hx Hypertension Yes Respiratory History Hx Asthma Yes Hx Sleep Apnea Yes: WEARS CPAP Gastrointestinal History Hx Gastroesophageal Reflux Disease Yes Hx Irritable Bowel Yes Musculoskeletal History Hx Crutches or Walker Use Yes: CRUTCHES Query Text:If Yes, Enter Crutches, Walker, or Both in the Comment Hx Fractures Yes: RT ANKLE, RT SHOULDER Hx Orthopedic Surgery Yes: RT SHOULDER, RT ANKLE Hx Other Musculoskeletal Disorders Yes: CARPAL TUNNEL SYNDROME, LT SHOULDER BONE SPUR Endocrine History Hx Diabetes Yes HEENT History Hx Tonsillectomy Yes Psychosocial History Hx Anxiety Yes Hx Depression Yes Diagnosis left clavical decompression and subacrombial decompresion Onset 06/04/2020 Subjective Information Doing really well. Not taking Query Text:As Reported By Patient/ pain meds anymore. Ceased Family wearing the sling a day ago and doing really well. States that he is moving elbow and wrist and doing pendulums. Self Report Pain Assessment Left Shoulder(s) Reported Pain Level 5 Pain Description Incisional Pain Aggravating Factors ADL's,Exercise/Activity Pain Behaviors None Pain Score Pain Score 5: Self Report Interventions Used Interventions Used By Clinicians Joint Mobilization Upper Extremity Range of Motion Scapular/ Shoulder Range of Motion Left Shoulder Flexion - Passive 115 Shoulder Abduction - Passive 105 Shoulder Lateral Rotation - Passive 65 Upper Extremity Muscle Strength Testing General Upper Extremity Strength Reason Not Measured Surgery Precautions Palpation Assessment Palpation Palpation incision site clean and well healing; no signs of infection noted General Exercise General Exercises Side Left Exercise Location shoulder Exercise Type Active/Assistive,Isometric Exercise Description -isometric internal and Query Text:Recor
--- NOTE | 2021-05-16 17:33 | PTOPEVAL ---
PHYSICAL THERAPY DISCHARGE NOTE Thank you for referring Karlie Gilliam to [facility].? Please review, sign, date and return this plan of care CAITLIN. I agree with and certify that the following plan of care is medically necessary. Referring Physician Date Attending Provider: William Salmeron MD Discharge Diagnosis left clavical decompression and subacrombial decompresion Onset 06/04/2020 Subjective Information Reports that he is doing very Query Text:As Reported By Patient/ well. Only some occasional Family sore or tender spots. No pain while driving. No pain while sleeping. Pain Assessment Timing of Pain Assessment Timing of Pain Assessment Assessment Self Report Self Report Pain Level 0 Pain Score Pain Score 0: Self Report Upper Extremity Range of Motion Scapular/ Shoulder Range of Motion Left Shoulder Flexion - Active 150 Shoulder Abduction - Active 150 Shoulder Medial Rotation - Active L1 Query Text:Reach Behind the Back Shoulder Lateral Rotation - Active 75 Upper Extremity Muscle Strength Testing Scapular/Shoulder Left Shoulder Flexion Strength 5 Normal Shoulder Extension Strength 5 Normal Shoulder Abduction Strength 5 Normal Shoulder Medial Rotation Strength 5 Normal Shoulder Lateral Rotation Strength 5 Normal General Exercise General Exercises Side Left Exercise Location shoulder Exercise Type Active/Assistive,Resistive, Stretching Exercise Description - anthony internal rotation Query Text:Record Sets, Reps, [id number] Resistance, and Position -PNF flexion and extension green band x25 of each -shoulder internal and external rotation at 90deg abd in scaption green band x15 of each -corner pec stretch [id number] x2 -pushups at 2.5ft bench height x12 PT Clinical Summary Karlie has met his functional goals at this time. He has returned to work. He has no difficulty sleeping. I recommend d/c from PT at this time. PT Services Indicated No Rehabilitation Potential Good Potential Barriers to Goal Achievements None Support Requirements For Optimal None Nicholson Patient/Caregiver Informed of Benef
== END 2021-05-17 16:39 | disposition home or self-care (01) ==
LOC: ANHPT 17:00
PROVIDERS: PCP Family Medicine; Visit Provider Orthopaedic Surgery
DX: Z48.89 Encounter for other specified surgical aftercare (principal)
CPT/HCPCS: 97110; 97140; 97162

== ENCOUNTER 2021-06-21 07:51 | Outpatient (CLI) | payer OTHER, SELFPAY ==
[2021-06-21 16:06] LABS: Basophils Absolute Auto 0.1 K/mm3 (0.0-0.1); Basophils Percent Auto 0.9 % (0.2-1.2); Eosinophils Absolute Auto 0.1 K/mm3 (0-0.3); Eosinophils Percent Auto 1.3 % (0-4.4); Hematocrit 45.3 % (42.0-52.0); Hemoglobin 14.9 g/dL (14.0-18.0); Immature Granulocyte Absolute 0.02 K/mm3 (0.00-0.031); Immature Granulocyte Percent A 0.3 % (0-0.5); Lymphocytes Absolute Auto 2.13 K/mm3 (0.9-3.2); Lymphocytes Percent Auto 30.7 % (18.3-44.2); Mean Corpuscular HGB Conc 32.9 g/dl (32-36); Mean Corpuscular Hemoglobin 28.7 pg (26-34); Mean Corpuscular Volume 87.1 fl (80-100); Mean Platelet Volume 10.4 fl (7.4-10.4); Monocytes Absolute Auto 0.5 K/mm3 (0.1-0.6); Monocytes Percent Auto 6.9 % (2.6-8.5); Neutrophils Absolute Auto 4.2 K/mm3 (1.3-6.7); Neutrophils Percent Auto 59.9 % (45.5-73.1); Platelet Count Result 349 k/mm3 (150-375); Red Cell Distribution Width 13.5 % (11.5-14.5); White Blood Count 6.9 K/mm3 (4.5-10.0)
[2021-06-21 16:54] LABS: Hemoglobin A1C 9.3 % (<5.7)
[2021-06-21 17:09] LABS: Alanine Aminotransferase 37 U/L (4-50); Albumin Level 4.6 g/dL (3.5-5.1); Alkaline Phosphatase 147 U/L (38-126); Anion Gap 11 mmol/L (8-16); Aspartate Amino Transferase 30 U/L (17-59); Bilirubin,Total 0.3 mg/dL (0.2-1.3); Blood Urea Nitrogen 10 mg/dL (9-20); Calcium 9.8 mg/dL (8.4-10.2); Carbon Dioxide 23 mmol/L (22-30); Chloride 100 mmol/L (98-107); Cholesterol 233 mg/dL (0-200); Estimated Glomerular Filt Rate > 60; Glucose 330 mg/dL (65-110); Potassium 4.4 mmol/L (3.4-5.0); Sodium 134 mmol/L (137-145)
[2021-06-21 17:12] LABS: Creatinine Urine 92.1 mg/dL
[2021-06-21 17:16] LABS: MALB Creatinine Ratio 181.9 mg/g (0-30); Microalbumin Urine Random 167.5 mg/L (0-16.7)
[2021-06-21 17:55] LABS: Triglycerides 793 mg/dL (<150)
[2021-06-21 18:47] LABS: LDL Cholesterol Direct 87 mg/dL
== END 2021-06-21 07:52 | disposition home or self-care (01) ==
LOC: ANHWCLAB 07:52
PROVIDERS: PCP Family Medicine; Visit Provider Family Medicine
DX: E11.9 Type 2 diabetes mellitus without complications (principal)
CPT/HCPCS: 36415; 80053; 80061; 82043; 83036; 84443; 85025

== ENCOUNTER 2021-09-18 08:36 | Outpatient (CLI) | payer OTHER, SELFPAY ==
--- NOTE | 2021-09-18 08:43 | ECG_ITS ---
Measurements Intervals [place] Rate: 71 P: 47 PA: 151 QRS: 45 QRSD: 98 T: 53 QT: 362 QTc: 396 Interpretive Statements SINUS RHYTHM BASELINE ARTIFACT- I, II, III, AVR, AVL, AVF NORMAL ECG Electronically Signed On 09-18-2021 9:05:59 CDT by uJdah Pérez D.O.
[2021-09-18 09:32] LABS: Anion Gap 9 mmol/L (8-16); Blood Urea Nitrogen 11 mg/dL (9-20); Carbon Dioxide 23 mmol/L (22-30); Chloride 101 mmol/L (98-107); Estimated Glomerular Filt Rate > 60; Glucose 346 mg/dL (65-110); Potassium 4.4 mmol/L (3.4-5.0); Sodium 133 mmol/L (137-145)
== END 2021-09-18 08:37 | disposition home or self-care (01) ==
PROVIDERS: Anesthesiology; PCP Family Medicine; Visit Provider Orthopaedic Surgery
DX: Z01.818 Encounter for other preprocedural examination (principal); I10 Essential (primary) hypertension; E11.9 Type 2 diabetes mellitus without complications
CPT/HCPCS: 36415; 80048; 80061; 81001; 93005

== ENCOUNTER 2021-09-18 08:47 | Outpatient (CLI) | payer OTHER, SELFPAY ==
[2021-09-18 09:31] LABS: Cholesterol 235 mg/dL (0-200); HDL Direct 30 mg/dL; Triglycerides 515 mg/dL (<150)
[2021-09-18 09:33] LABS: Appearance Urine Clear (Clear); Bilirubin Urine Negative (Negative); Blood Urine Negative (Negative); Color Urine Yellow (Yellow); Glucose Urine UA 2+ mg/dL (Negative); Ketones Urine 3+ mg/dL (Negative); Leukocyte Esterase Ur Negative LEU/UL (Negative); Nitrate Urine Negative (Negative); Protein Urine Negative (Negative); Specific Grav Ur 1.015 (1.001-1.035); Urobilinogen Urine 0.2 mg/dL (<2.0)
[2021-09-18 09:42] LABS: LDL Cholesterol Direct 118 mg/dL
[2021-09-18 09:43] LABS: Add Urine Microscopic? YES
[2021-09-18 09:52] LABS: Mucus Urine Rare /lpf; RBC Urine 0-2 /hpf (0-2); Squamous Epithelial Cell Urine Rare /hpf (Few)
== END 2021-09-18 08:48 | disposition home or self-care (01) ==
PROVIDERS: PCP Family Medicine; Visit Provider Family Medicine
DX: N39.0 Urinary tract infection, site not specified (principal); E78.1 Pure hyperglyceridemia
CPT/HCPCS: 36415; 80061; 81001

== ENCOUNTER 2021-09-19 00:43 | Day surgery (SDC) | payer OTHER, SELFPAY ==
[2021-09-15 14:12] VITALS: BMI 31.1
--- NOTE | 2021-09-15 14:31 | PC.NURSE ---
Report to the Outpatient Waiting Room, entrance under the green pavilion located off [facility], at time _11:30AM on date __09/19/21 . OR Time: ___1:30PM . - You and your visitor will be asked a series of questions to screen for COVID 19 for your protection. - Only one visitor is allowed at this time. - The patient visitor is requested to leave or wait in car when not with patient. - A mask is required within the hospital. Patients may have clear liquids (water, carbonated beverages, clear teas, apple juice) until 3 hours prior to surgery with a maximum of 20 ounces. - No food from midnight until time of surgery - Infants may have breast milk until 4 hours before surgery, infant formula 6 hours prior to surgery. - Children will be allowed to drink immediately following surgery. If applicable, please bring a bottle or sippy cup to assist with drinking. Juice, water, soda, and popsicles are readily available. For infants on formula, please bring formula the day of surgery. Pacifiers are allowed. Take the following medications with a SIP of water the morning of surgery: ____METOPROLOL, PAROXETINE, ALBUTEROL INHALER NEEDED & ALPRAZOLAM NEEDED Medications to discontinue per physician __HOLD ASPIRIN 7 DAYS PRE-OP(PT HASN'T TAKEN TODAY), HOLD ALL VITAMINS/SUPPLEMENTS 3 DAYS PRE-OP- LAST DOSE 09/15/21 Please no make-up, nail lao, hairspray, perfume, deodorant, or body powder the day of surgery. No jewelry (including any body piercings) or valuables the day of surgery, leave them at home. Please take a shower or bath the night before, or the morning of, surgery with an antibacterial soap. Wear comfortable, loose fitting clothing. Children are encouraged to wear pajamas. - Jewelry must be removed prior to entering the operating room. Rings and piercings that are not removed may be cut off. - The hospital will not accept responsibility for valuables. - Please leave all valuables, including medications, at home the day of surgery. If you are going home after surgery, a licensed driver's license reviewing officer must drive you home. - NO public transportation without another adult. - We recommend that an adult stay with you for 24 hours following discharge. - We also recommend that you do not drive, make important decision, drink alcoholic beverages, or take any drugs that were not prescribed by your health care provider for at least 24 hours after your discharge time. For Pediatric surgeries, we recommend two adults accompany the child home (only one inside the building at this time). Follow any additional instructions given to you from your surgeon. If you or anyone in your household have experienced Covid symptoms in the past week, please notify your surgeon or the nurse liaison at the phone number below for possible testing. Telephone instructions given to _PATIENT and asked if any additional questions and then verbalized understanding. Patient advised to call surgeon office or pre surgery nurse liaison [phone] if any additional questions.
[2021-09-19] VITALS (11 sets, daily range): BP systolic 105–146; BP diastolic 59–96; PULSE 53–71; RESP 12–20; TEMP 36.3–36.4; O2SAT 97–100
--- NOTE | ~2021-09-19 | XR_ITS ---
EXAMINATION: XR surgery orthopedic DATE: 09/19/2021 14:13 INDICATION: Orthopedic instrumentation removal at the right ankle TECHNIQUE: 2 fluoroscopic images of the right ankle were obtained during procedure performed by Dr. Reuben canseco. Radiologist was not present for the imaging or procedure. The amount of fluoroscopy time u sed during this procedure was 0.4 minutes. COMPARISON: 09/29/2020 FINDINGS: Interval removal of the internal fixation instrumentation at the right ankle with no residual foreign bodies appreciated. There are residual lucent screw tracks as well as horizontal lucent tract from t he prior syndesmotic fixation at the distal tibia and fibula. Previous fractures of healed in essenti ally anatomic alignment. No new fractures identified. IMPRESSION: 1. Fluoroscopy utilized during removal of fixation instrumentation at the right ankle. See procedure note for further detail. Reviewed, dictated and finalized at location A.
[2021-09-19] MEDS: ACETAMINOPHEN 500 MG TABLET 1000 MG PO (12:00)
[2021-09-19] MEDS: LACTATED RINGERS 1,000 ML 30 ML IV CONT ×2 (12:00→15:06)
[2021-09-19 12:10] LABS: Glucose Point of Care 276 mg/dl (65-105)
[2021-09-19] MEDS: KETOROLAC 15 MG/ML VIAL (*BKC) IV PUSH (12:15)
--- NOTE | 2021-09-19 12:26 | SUR.PREOP ---
1227- PT BLOOD SUGAR 276. REVIEWED WITH DR. SCHWARTZ. PT NOT ON SUB Q INSULIN. PT ON PO MEDS. DR. SCHWARTZ STATED TO RECHECK IN PACU TO REVIEW RESULTS.
--- NOTE | 2021-09-19 12:42 | WPDANESEPPF ---
Anes - Initial Pre Proc Eval Procedure: Operation Date: 09/19/21 13:30 Proposed Procedures p Hardware Removal Right Ankle, Incision and Drainage Right Ankle - William Salmeron MD Date/Time: 09/19/21 12:42 Surgeon: William Salmeron MD Pre Op Diagnosis: Painful Hardware Rt Ankle, Deep Wound Infection Patient Data Age: 41 Gender: M Height: 1.83 m Weight: 100.4 kg Last Vital Signs Temp 97.5 F L 09/19/21 12:16 Pulse 71 09/19/21 12:16 Resp 16 09/19/21 12:16 BP 126/76 09/19/21 12:16 Pulse Ox 99 09/19/21 12:16 Allergies Allergy/AdvReac Type Severity Reaction Status Date / Time No Known Allergies Allergy Verified 09/19/21 11:52 Home Medications Medication Instructions Recorded Confirmed Type albuterol sulfate 90 mcg/actuation 2 puff INHALATION Q4-6H PRN g 08/15/20 09/19/21 History aerosol inhaler sildenafil 100 mg tablet 100 mg PO DAILY PRN #30 tablet 01/27/21 09/19/21 Rx Lactobacillus rhamnosus GG 10 1 cap PO DAILY #20 cap 08/05/21 09/19/21 Rx billion cell capsule alprazolam 1 mg tablet 1 mg PO BID PRN #30 tablet 08/25/21 09/19/21 Rx aspirin [Adult Aspirin EC Low 81 mg PO DAILY 09/15/21 09/19/21 History Strength] cephalexin 500 mg capsule 500 mg PO Q8H 30 Days #90 cap 09/15/21 09/19/21 Rx metformin 1,500 mg PO QAM 09/15/21 09/19/21 History metoprolol succinate 25 mg PO QAM 09/15/21 09/19/21 History multivit with min-folic acid 1 tablet PO DAILY 09/15/21 09/19/21 History [Daily Multiple For Men] omega-3 fatty acids-vitamin E 1 cap PO DAILY 09/15/21 09/19/21 History [Fish Oil] omeprazole 40 mg PO DAILY 09/15/21 09/19/21 History paroxetine HCl 40 mg PO DAILY 09/15/21 09/19/21 History simvastatin 20 mg PO DAILY 09/15/21 09/19/21 History sitagliptin [Januvia] 100 mg PO QAM 09/15/21 09/19/21 History Laboratory Tests 09/19/21 12:08 POC Capillary Glucose 276 mg/dl H mg/dl (65-105) Patient hx anesthesia problems: none Family hx anesthesia problems: none Results Review: All pre-operative results and documents have been reviewed as part of the pre-operative evaluation. [facility] Past Medical History Medical History Anxiety disorder, unspecified Asthma Chest pain Chest pain at rest Diabetes Diarrhea Dyslipidemia Essential (primary) hypertension Family history of premature CAD Fracture of other part of scapula, right shoulder, sequela H/O pilonidal cyst Hyperlipidemia Hypertension Obesity Sleep apnea Smoking Tobacco abuse Type 2 diabetes mellitus without complication, without long-term current use of insulin Surgical History Surgical History H/O shoulder surgery Rt shoulder Hx of adenoidectomy Hx of tonsillectomy Family History Family History Mother Family history of mental disorder Hypertension Father Hypertension Family history of elevated blood lipids Social History Social History Smoking packs per day: 0.5 Smoking cigarettes per day: 10.0 Years smoked: 25 Smoking pack-years: 12.50 Smoking status: Current every day smoker Tobacco type: cigarettes Second hand tobacco smoke exposure: Yes Smoking end date: 05/06/09 Alcohol intake: current Drinks per week: 1 Alcohol use details: 5/MONTH Substance use: current Substance use type: marijuana Other substance usage details: DAILY Last use: 03/24/21 Living arrangements: with family Additional living arrangements comments: Gender identity (if verbalized by the patient): Male Spiritual care concerns: No Agree to blood products: Yes Anes - Eval Final PreProcedure Day of Procedure 09/19/21 12:42 Patient weight: obese Heart: regular rate and rhythm Lungs: clear to auscultation Airway: Mallampati scale cl
--- NOTE | 2021-09-19 12:57 | WPDHPUPDATE1 ---
History and Physical Update Update Date/Time: 09/19/21 12:57 History and Physical has been reviewed, including an updated exam of the patient. There are NO changes in the patient's condition. Risks, benefits, and alternatives have been discussed and questions answered. Patient agrees to proceed with procedure.
[2021-09-19] MEDS: ceFAZolin 2 GM/D5W 50 ML 2 GM/50 ML BAG IVPB (13:01)
[2021-09-19] MEDS: BUPIVACAINE HCL 0.25% PF 30 ML VIAL INFILTRATE (13:25)
[2021-09-19] MEDS: VANCOMYCIN HCL 1,000 MG VIAL 1000 MG TOPICAL (14:04)
[2021-09-19] MEDS: fentaNYL CITRATE INJ (*CRX) 100 MCG/2 ML VIAL 25 MCG IV PUSH ×7 (14:40→15:25)
--- NOTE | 2021-09-19 14:46 | W.PM.PROC2 ---
Procedure Note - Detailed Date of Procedure 09/19/21 Pre-op Diagnosis Painful Hardware Rt Ankle, Deep Wound Infection Post-op Diagnosis Same Procedure Performed 1. Right ankle deep irrigation and debridement of the lateral wound. 2. Removal hardware from bimalleolar ankle fracture including syndesmosis tight rope. Surgeon William Salmeron MD Anesthesia General Indications Infection developed along the central distal wound of the lateral ankle. Approximately 1 year postoperatively. He did have a small stitch abscess in the early postoperative. That resolved. No other hardware difficulties. Findings Infection with gross purulence near the site of the syndesmosis button. Infection possibly track down to the plate. The tissues were in pretty good condition otherwise. Description of Procedure Preoperative antibiotics were given. A general anesthetic was administered. The limb was prepped and draped in the usual sterile fashion with a well-padded tourniquet on the thigh. The limb was elevated and the tourniquet inflated to 275 mmHg. A longitudinal incision was created medially near the medial button. This was blunt dissected and removed. Two small incisions were created at the distal medial malleolus and a guidewire was placed into the cannulated screws. The screws were removed. The wounds were closed with interrupted horizontal mattress 3-0 nylon suture. Attention was turned to the lateral ankle. The incision was open. Gross purulence was sent for culture. Plate was easily exposed with sharp and then elevation with a periosteal elevator. All remaining screws including the AP lag screw were removed. Bone was nicely healed. The tight rope sutures were removed. Screw holes were curetted. Proliferative debride near the infection site was easily removed and curetted. The tissues were quite healthy. Vancomycin powder was placed in the syndesmosis hole and in the other available screw holes. The wound was copiously irrigated previously with normal saline and soaked for 3 minutes with dilute Betadine which was then irrigated. The wound was closed loosely with interrupted 2-0 PDS suture followed by 3-0, and 2-0 nylon suture. The wound was left slightly loosely closed to allow for drainage. The tourniquet was released. Xeroform gauze placed on the wounds. Bulky soft splint dressing with gauze applied. Light Eugene wrap. Patient extubated and brought to recovery room stable condition. 10 mL of 1% lidocaine was used in the periarticular tissues for perioperative pain control. Estimated Blood Loss -5.0 Drains No Packing No Pathology Yes (Culture x 1. and gram stain.) Complications No immediate complications Condition Stable Disposition PACU [facility] Billing Surgery - Charge Forward: Surgery Billing
[2021-09-19 14:48] LABS: Glucose Point of Care 284 mg/dl (65-105)
[2021-09-19] MEDS: HYDROmorphone HCL INJ (*CRX) 1 MG/ML SYR 0.5 MG IV PUSH ×4 (15:28→15:59)
[2021-09-19] MEDS: oxyCODONE HCL (*CRX) 5 MG TAB IR PO (16:11)
== END 2021-09-19 17:00 | disposition home or self-care (01) ==
PROVIDERS: PCP Family Medicine; Visit Provider Orthopaedic Surgery
PROC: (CPT 20680; principal; 2021-09-19 13:30)
DX: T81.42XA Infection following a procedure, deep incisional surgical site, initial encounter (principal); T84.84XA Pain due to internal orthopedic prosthetic devices, implants and grafts, initial encounter; Y83.8 Other surgical procedures as the cause of abnormal reaction of the patient, or of later complication, without mention of misadventure at the time of the procedure; I10 Essential (primary) hypertension; J45.909 Unspecified asthma, uncomplicated; E78.5 Hyperlipidemia, unspecified; E11.9 Type 2 diabetes mellitus without complications; G47.30 Sleep apnea, unspecified; F41.9 Anxiety disorder, unspecified; E66.9 Obesity, unspecified; Z68.30 Body mass index [BMI] 30.0-30.9, adult; F17.210 Nicotine dependence, cigarettes, uncomplicated; F12.90 Cannabis use, unspecified, uncomplicated; Z87.81 Personal history of (healed) traumatic fracture; Z79.51 Long term (current) use of inhaled steroids; Z79.84 Long term (current) use of oral hypoglycemic drugs; Z79.82 Long term (current) use of aspirin
CPT/HCPCS: 20680; 82948; 87070; 87075; 87205; A9270; J0690; J1170; J1885; J2250; J2405; J2704; J3010; J3370; J7120

== ENCOUNTER 2022-04-24 09:23 | Emergency (ER) | payer OTHER, SELFPAY ==
--- NOTE | ~2022-04-24 | CT_ITS ---
EXAMINATION: CT abdomen pelvis w con DATE: 04/24/2022 14:47 INDICATION: Right lower quadrant abdominal pain, right flank pain, radiating to right testicle for 3 to 4 weeks TECHNIQUE: Computed tomography (CT) of the abdomen and pelvis was performed with 100 CC Omnipaque 350 intravenous contrast. Automated exposure control and iterative reconstruction technique were employe d. Exam dose: 772.21 mGy-cm total exam DLP. COMPARISON: 10/01/2019 CT abdomen pelvis 12/26/2021 pelvis FINDINGS: The lung bases are clear. Normal heart size. No pericardial or pleural effusion. There is hepatic steatosis with some pericholecystic sparing. No hepatic, splenic, pancreatic, adrena l or renal space-occupying mass lesion is noted. No bile duct or pancreatic duct dilatation. No gallbladder wall thickening or pericholecystic fluid o r fat stranding. No urinary tract calculus or hydroureteronephrosis. The urinary bladder is unremarka ble. Mild prostatomegaly. Normal caliber of the abdominal aorta. No intraperitoneal or retroperitoneal or pelvic mass lesion or adenopathy or ascites. Small bilateral fat-containing inguinal hernias. Up to 2.3 cm wide fat-containing umbilical hernia with approximately 10.4 mm wide umbilical hernia ne ck. No evidence of appendicitis. No bowel obstruction, bowel wall thickening, pneumatosis or intraperitoneal free air. Degenerative spurring in the lower thoracic spine. IMPRESSION: Hepatic steatosis Mild prostatomegaly Small bilateral fat-containing inguinal hernias 2.3 cm wide fat-containing umbilical hernia Normal appendix No urinary tract calculus or hydroureteronephrosis Reviewed, dictated and finalized at Location A. Reviewed, dictated and finalized at location A. TED CIRCUIT PHOTOGRAPHER
--- NOTE | ~2022-04-24 | US_ITS ---
Testicular ultrasound with doppler. Indication: Right testicular pain. Technique: Real-time sonography the scrotum was performed. Color flow Doppler and Doppler spectral an alysis were performed. Findings: The testes are homogeneous in echotexture bilaterally. There is no evidence of an intrates ticular mass. The right testis measures 4.0 x 2.3 x 2.7 cm and the left 4.4 x 2.2 x 2.7 cm. There is color-flow seen to both testes. Arterial and venous spectral waveforms are seen in both testes. There is no sonographic evidence of torsion. The head of the epididymis is visualized bilaterally and is within normal limits. Impression: Unremarkable exam. No evidence of torsion. Reviewed, dictated and finalized at location M. LPHURIZER OPERATOR Impression: Unremarkable exam. No evidence of torsion.
[2022-04-24 09:44] VITALS: BP 142/85; PULSE 92; RESP 18; TEMP 36.7; O2SAT 99
--- NOTE | 2022-04-24 12:18 | ED.MALEGU ---
HPI - Male Genitourinary General Chief complaint: Urogenital-Male Stated complaint: flank pain Time Seen by Provider: 04/24/22 12:18 Source: patient Mode of arrival: ambulatory Limitations: no limitations History of Present Illness HPI Narrative: Patient is a 42-year-old male with a history of hypertension, hyperlipidemia, prediabetes, presenting to the emergency department for evaluation of right lower abdominal pain and right flank pain. Pain has been present and constant over the past month. Exacerbated with movement. Radiation into the right testicle without testicular swelling, bruising, redness. No dysuria or hematuria. No lesions or vesicles of the penis, no penile pain. Pt has been taking Tylenol without much improvement in his symptoms. He denies fever, chills, nausea, or vomiting. No diarrhea or constipation. Related Data Home Medications Medication Instructions Recorded Confirmed aspirin 81 mg tablet,delayed 81 mg PO DAILY 09/15/21 12/26/21 release multivitamin with minerals-folic 1 tablet PO DAILY 09/15/21 12/26/21 acid 0.4 mg tablet omega-3 fatty acids-vitamin E 1 cap PO DAILY 09/15/21 12/26/21 1,000 mg capsule Allergies Allergy/AdvReac Type Severity Reaction Status Date / Time No Known Allergies Allergy Verified 04/24/22 09:42 Review of Systems Review of Systems: CONSTITUTIONAL: Denies fever, chills, or sweats. ENT: Denies rhinorrhea, congestion, sore throat, or otalgia. CARDIOVASCULAR: Denies chest pain, palpitations, or edema. RESPIRATORY: Denies cough or dyspnea. GASTROINTESTINAL: Reports right lower quadrant abdominal pain, right flank pain, denies nausea, vomiting or diarrhea GENITOURINARY: Denies dysuria or hematuria. SKIN: Denies rash or itching. MUSCULOSKELETAL: Reports right-sided back pain without other joint pain, or myalgia. NEUROLOGIC: Denies headache, numbness, or weakness. [facility] Past Medical History Medical History (Updated 04/24/22 @ 16:32 by Lindsey White MD) Anxiety disorder, unspecified Asthma Chest pain Chest pain at rest Diabetes Diarrhea Dyslipidemia Essential (primary) hypertension Family history of premature CAD Fracture of other part of scapula, right shoulder, sequela H/O pilonidal cyst Hyperlipidemia Hypertension Lumbar pain Obesity Sleep apnea Smoking Tobacco abuse Type 2 diabetes mellitus without complication, without long-term current use of insulin Surgical History Surgical History H/O shoulder surgery Rt shoulder History of open reduction and internal fixation (ORIF) procedure (~09/29/20) Ankle History of removal of retained hardware (~09/19/21) Rt Ankle, with Incision & Drainage Hx of adenoidectomy Hx of tonsillectomy Family History Family History Mother Family history of mental disorder Hypertension Father Hypertension Family history of elevated blood lipids Social History Social History Smoking packs per day: 0.5 Smoking cigarettes per day: 10.0 Years smoked: 25 Smoking pack-years: 12.50 Smoking status: Current every day smoker Tobacco type: cigarettes Second hand tobacco smoke exposure: Yes Smoking end date: 05/06/09 Alcohol intake: current Drinks per week: 1 Alcohol use details: 5/MONTH Substance use: current Substance use type: marijuana Other substance usage details: DAILY Last use: 03/24/21 Additional living arrangements comments: Gender identity (if verbalized by the patient): Male Sexual Orientation (if Verbalized by the Patient): Straight or Heterosexual Spiritual care concerns: No Agree to blood products: Yes Exam Narrative: GENERAL: Awake, alert, conversant HEAD: Normocephalic, atraumatic. EYES: PERRLA and EOMI. ENT: Nares clear, no rhinorrhea or epistaxis. Mucous membranes moist. NECK: Supp
[2022-04-24] MEDS: oxyCODONE/ACETAMINOPHEN (*CRX) 5-325 MG TABLET 1 TABLET PO ×2 (12:45→16:25)
[2022-04-24 12:50] VITALS: BP 135/83; PULSE 70; O2SAT 100
[2022-04-24 12:56] LABS: Add Urine Microscopic? YES; Appearance Urine Clear (Clear); Bilirubin Urine Negative (Negative); Blood Urine Negative (Negative); Color Urine Yellow (Yellow); Glucose Urine UA 3+ mg/dL (Negative); Ketones Urine Trace mg/dL (Negative); Leukocyte Esterase Ur Negative LEU/UL (Negative); Nitrate Urine Negative (Negative); Protein Urine Trace mg/dL (Negative); Specific Grav Ur 1.025 (1.001-1.035); Urobilinogen Urine 0.2 mg/dL (<2.0); pH Urine 5.5 (5.0-9.0)
[2022-04-24 12:56] LABS: Basophils Absolute Auto 0.1 K/mm3 (0.0-0.1); Basophils Percent Auto 0.6 % (0.2-1.2); Eosinophils Absolute Auto 0.2 K/mm3 (0-0.3); Hematocrit 46.3 % (42.0-52.0); Immature Granulocyte Absolute 0.04 K/mm3 (0.00-0.031); Immature Granulocyte Percent A 0.3 % (0-0.5); Lymphocytes Absolute Auto 3.82 K/mm3 (0.9-3.2); Lymphocytes Percent Auto 33.2 % (18.3-44.2); Mean Corpuscular HGB Conc 34.6 g/dl (32-36); Mean Corpuscular Hemoglobin 28.9 pg (26-34); Mean Corpuscular Volume 83.7 fl (80-100); Mean Platelet Volume 9.5 fl (7.4-10.4); Monocytes Absolute Auto 0.6 K/mm3 (0.1-0.6); Monocytes Percent Auto 5.5 % (2.6-8.5); Neutrophils Absolute Auto 6.7 K/mm3 (1.3-6.7); Neutrophils Percent Auto 58.4 % (45.5-73.1); Platelet Count Result 368 k/mm3 (150-375); Red Blood Count 5.53 M/mm3 (4.6-6.20); Red Cell Distribution Width 12.6 % (11.5-14.5); White Blood Count 11.5 K/mm3 (4.5-10.0)
[2022-04-24 13:07] LABS: Alanine Aminotransferase 32 U/L (6-50); Albumin Level 5.1 g/dL (3.5-5.1); Alkaline Phosphatase 85 U/L (38-126); Anion Gap 8 mmol/L (8-16); Aspartate Amino Transferase 23 U/L (17-59); Bilirubin,Total 0.3 mg/dL (0.2-1.3); Blood Urea Nitrogen 11 mg/dL (9-20); Calcium 9.5 mg/dL (8.4-10.2); Carbon Dioxide 31 mmol/L (22-30); Chloride 98 mmol/L (98-107); Estimated CRCL calculation 150 ml/min; Estimated Glomerular Filt Rate > 60; Glucose 220 mg/dL (65-110); Lipase 123 U/L (23-300); Potassium 4.6 mmol/L (3.4-5.0); Sodium 137 mmol/L (137-145)
[2022-04-24 13:08] LABS: Mucus Urine Rare /lpf; RBC Urine 0-2 /hpf (0-2); Squamous Epithelial Cell Urine Occasional /hpf (Few); WBC Urine 0-3 /hpf
[2022-04-24 13:41] VITALS: BP 135/80; PULSE 89; RESP 16; O2SAT 98
[2022-04-24] MEDS: SODIUM CHLORIDE 0.9% IV 1,000 ML 999 ML IV CONT (14:19)
[2022-04-24] MEDS: MORPHINE SULFATE (*CRX) 4 MG/ML INJ IV PUSH (14:20)
[2022-04-24] MEDS: ONDANSETRON INJ 4 MG/2 ML VIAL IV PUSH (14:20)
[2022-04-24 15:00] VITALS: PULSE 72; RESP 18; O2SAT 94
[2022-04-24 16:55] VITALS: BP 116/81; PULSE 75; RESP 16; O2SAT 97
== END 2022-04-24 16:56 | disposition home or self-care (01) ==
PROVIDERS: Emergency Provider Emergency Medicine; PCP Family Medicine
DX: R10.31 Right lower quadrant pain (principal); M54.9 Dorsalgia, unspecified; I10 Essential (primary) hypertension; E78.5 Hyperlipidemia, unspecified; E11.9 Type 2 diabetes mellitus without complications; J45.909 Unspecified asthma, uncomplicated; G47.30 Sleep apnea, unspecified; E66.9 Obesity, unspecified; Z79.82 Long term (current) use of aspirin; Z87.891 Personal history of nicotine dependence; K76.0 Fatty (change of) liver, not elsewhere classified; K40.20 Bilateral inguinal hernia, without obstruction or gangrene, not specified as recurrent; K42.9 Umbilical hernia without obstruction or gangrene; Z79.84 Long term (current) use of oral hypoglycemic drugs
CPT/HCPCS: 36415; 74177; 76870; 80053; 81001; 83690; 85025; 93976; 96361; 96374; 96375; 99284; A9270; J2270; J2405; J7030; Q9967

== ENCOUNTER 2023-07-09 12:30 | Outpatient (RCR) | payer BC, OTHER, SELFPAY ==
--- NOTE | 2023-06-25 16:16 | OPREHPOC ---
Outpatient Therapy Plan of Care This is a Multidisciplinary Plan of Care that may contain components documented by all disciplines (PT, OT, and ST.) PT Problem 1 PT Problem #1 Knowledge Deficit PT Goal 1 Goal 1* indep with HEP PT Problem 2 PT Problem #2 Pain PT Goal 1 Goal 1* pt report pain at worst of 2/10 2* self assessment Oswestry rating of 14% limitation in activity PT Problem 3 PT Problem #3 Impaired Strength PT Goal 1 Goal improve trunk strength and mobility to improve position of spine 1* pt stand without R shoulder and trunk rotation forward 2* pt perform correct bilateral UE box lift 30# floor/waist height x 3 reps 3* single leg standing R x 20 seconds with good stability PT Problem 4 PT Problem #4 Impaired Flexibility PT Goal 1 Goal improve flexibility and to improve muscle length and position of trunk/hips hamstring length with supine SLR 1* R 70' 2* L 70' anterior hip/quad length with prone knee flexion 3* R 130' 4* L 130'
--- NOTE | 2023-06-25 16:16 | PTOPEVAL1 ---
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 muscles; try to get a massage every 3 weeks have had PT in the past, but not for back pain; have been to chiropractor in the past for his back awhile ago; Activity: work 9 hours at desk, sit 2-3 hours at a time; have a good chair and computer set up at home; try to do some back exercises, not do regular fitness Reported Pain Level Pain Score Self Report Additional Pain Score Comments pain range in the past week 1-08/13; R and L lumbar areas; tight, achey, stiff, like kidneys hurt and more inside; increase pain; sit and work on computer for work; decrease pain: move around; over the counter meds PRN~ 10 x/wk; get a massage every 3 weeks is not using heat, ice, meds for pain; sleeping is OK; Assessment PT Clinical Summary Karlie has the diagnosis of low back pain. He reports gradual increase in back pain with sitting at his work computer too long, without any injury or trauma to back. Self assessment Oswestry rating of 22%. He is able to do all his home and work tasks but tightness and stiffness of back. He does some exercises, but not sure what he should do for his back. With the evaluation: he has poor positioning of his trunk and spine; tightness over anterior hip, quads, hamstrings and piriformis muscles R and L, with tightness equal R/L; single leg standing tolerance is imbalance due to previous R ankle ORIF and pain. With the testing and motions, did not report any increase pain. He has decreased mobility of thoracic spine and increased lordosis and mobility of lumbar spine. Skilled PT services are i
--- NOTE | 2023-07-11 16:17 | PCPTNOTE ---
pt did not show for today's reeval appt, called and he had the appt as being tomorrow. Nahma like he was doing well and not need anymore therapy. He agreed to d/c PT.
--- NOTE | 2023-07-11 16:22 | PTOPDC ---
Assessment and note entered by Rosie Crocker, PT Discharge Information Assessment Status Discharge - Pt Not Present Diagnosis low back pain Onset over 1 year ago Assessment PT Clinical Summary Karlie has received 5 PT sessions. He did not show for today's reevaluation appointment. I called him and he had the appt on his calendar for tomorrow. Discussed his therapy with him, he reports he is doing well, has good exercises and feel he does not need any more therapy. Discharge PT services. The goals were not assessed, but pt stated he was OK and did not need any more therapy. Plan of Care PT Services Indicated No
== END 2023-07-12 08:33 | disposition home or self-care (01) ==
LOC: ANHPT 12:30
PROVIDERS: PCP Nurse Practitioner Family; Visit Provider Nurse Practitioner Family
DX: M54.50 Low back pain, unspecified (principal)
CPT/HCPCS: 97110; 97140; 97161; 97530; 99199

== ENCOUNTER 2023-10-25 14:03 | Emergency (ER) | payer OTHER, MEDICAID, SELFPAY ==
[2023-10-25 14:16] VITALS: BP 160/99; PULSE 112; RESP 18; TEMP 36.9; O2SAT 97
[2023-10-25 14:25] LABS: Glucose Point of Care 416 mg/dl (65-105)
[2023-10-25 14:35] LABS: Basophils Absolute Auto 0.1 K/mm3 (0.0-0.1); Basophils Percent Auto 0.4 % (0.2-1.2); Eosinophils Absolute Auto 0.1 K/mm3 (0-0.3); Eosinophils Percent Auto 0.5 % (0-4.4); Hematocrit 42.2 % (42.0-52.0); Immature Granulocyte Absolute 0.04 K/mm3 (0.00-0.031); Immature Granulocyte Percent A 0.3 % (0-0.5); Lymphocytes Absolute Auto 3.18 K/mm3 (0.9-3.2); Lymphocytes Percent Auto 27.6 % (18.3-44.2); Mean Corpuscular HGB Conc 35.5 g/dl (32-36); Mean Corpuscular Hemoglobin 29.2 pg (26-34); Mean Corpuscular Volume 82.1 fl (80-100); Mean Platelet Volume 10.3 fl (7.4-10.4); Monocytes Absolute Auto 0.7 K/mm3 (0.1-0.6); Monocytes Percent Auto 5.6 % (2.6-8.5); Neutrophils Absolute Auto 7.5 K/mm3 (1.3-6.7); Neutrophils Percent Auto 65.6 % (45.5-73.1); Platelet Count Result 395 k/mm3 (150-375); Red Blood Count 5.14 M/mm3 (4.6-6.20); Red Cell Distribution Width 12.7 % (11.5-14.5); White Blood Count 11.5 K/mm3 (4.5-10.0)
[2023-10-25] MEDS: LACTATED RINGERS 1,000 ML 999 ML IV CONT ×3 (14:43→15:07)
[2023-10-25 14:47] LABS: Alanine Aminotransferase 37 U/L (6-50); Albumin Level 4.8 g/dL (3.5-5.1); Alkaline Phosphatase 115 U/L (38-126); Anion Gap 10 mmol/L (4-12); Aspartate Amino Transferase 24 U/L (17-59); Bilirubin,Total 0.5 mg/dL (0.2-1.3); Blood Urea Nitrogen 12 mg/dL (9-20); Calcium 9.4 mg/dL (8.4-10.2); Carbon Dioxide 25 mmol/L (22-30); Chloride 99 mmol/L (98-107); Estimated CRCL calculation 150 ml/min; Estimated Glomerular Filt Rate > 60; Glucose 417 mg/dL (65-110); Magnesium 1.5 mg/dL (1.6-2.3); Phosphorus 4.3 mg/dL (2.5-4.5); Potassium 3.8 mmol/L (3.4-5.0); Sodium 134 mmol/L (137-145)
--- NOTE | 2023-10-25 14:48 | ED.GENADULT ---
HPI - General Adult General Chief complaint: Recheck/Abnormal Lab/Rx Stated complaint: high blood glucose Time Seen by Provider: 10/25/23 14:16 Source: patient Mode of arrival: ambulatory Limitations: no limitations History of Present Illness HPI narrative: this is a 43-year-old male with PMH of insulin-dependent diabetes who presents to the ED with chief complaint of elevated blood sugars at home. Patient states that over the past couple of weeks he has had increasing thirst, urination. He has not been checking his blood sugars over the last few weeks. He he felt that his blood sugars were doing well with the ptosis so he has not been taking them regularly. States he takes Victoza once per day. He has Not really been paying attention to his carbohydrates, explaining that he is eating carbs and drinking juice and lemonade. denies fevers, chills, abdominal pain, nausea, vomiting, chest pain, shortness of breath, cough, back pain, headache. Related Data Home Medications Medication Instructions Recorded Confirmed aspirin 81 mg tablet,delayed 81 mg PO DAILY 09/15/21 06/26/23 release omega-3 fatty acids-vitamin E 1 cap PO DAILY 09/15/21 06/26/23 1,000 mg capsule Allergies Allergy/AdvReac Type Severity Reaction Status Date / Time No Known Allergies Allergy Verified 10/25/23 14:17 Review of Systems Review of Systems: All systems as dictated in [facility] Past Medical History Medical History Asthma Chest pain Chest pain at rest Diabetes Diarrhea Dyslipidemia Essential (primary) hypertension Family history of premature CAD Fracture of other part of scapula, right shoulder, sequela H/O pilonidal cyst Hyperlipidemia Hypertension Lumbar pain Obesity Sleep apnea Smoking Tobacco abuse Type 2 diabetes mellitus without complication, without long-term current use of insulin Surgical History Surgical History H/O shoulder surgery Rt shoulder History of open reduction and internal fixation (ORIF) procedure (~09/29/20) Ankle History of removal of retained hardware (~09/19/21) Rt Ankle, with Incision & Drainage Hx of adenoidectomy Hx of tonsillectomy Family History Family History Mother Family history of mental disorder Hypertension Father Hypertension Family history of elevated blood lipids Social History Social History Smoking packs per day: 0.5 Smoking cigarettes per day: 10.0 Years smoked: 25 Smoking pack-years: 12.50 Smoking status: Current every day smoker Tobacco type: cigarettes Second hand tobacco smoke exposure: Yes Smoking end date: 05/06/09 Alcohol intake: current Drinks per week: 1 Alcohol use details: 5/MONTH Substance use: current Substance use type: marijuana Other substance usage details: DAILY Last use: 03/24/21 Living arrangements: with family Additional living arrangements comments: Occupation/Education: occupation Gender identity (if verbalized by the patient): Male Sexual Orientation (if Verbalized by the Patient): Straight or Heterosexual Spiritual care concerns: No Agree to blood products: Yes Exam Narrative: GENERAL: Well-appearing, well-nourished, and in no acute distress. HEAD: Normocephalic, atraumatic. EYES: PERRLA and EOMI. ENT: Nares clear, no rhinorrhea or epistaxis. Mucous membranes moist. Oropharynx without tonsillar hypertrophy exudate or other lesions. NECK: Supple. No adenopathy or masses. CHEST: No respiratory distress. Clear to auscultation. No wheezes rales or rhonchi HEART: Regular rate and rhythm. No murmur heard. Normal peripheral pulses. ABDOMEN: Soft, nontender, nondistended, normal active bowel sounds. MSK: Normal range of motion. No edema. SKIN: Warm, dry, no rash
[2023-10-25 14:50] LABS: Beta-Hydroxybutyrate/Acetoacetate 0.23 mmol/L (0.02-0.27)
[2023-10-25] MEDS: INSULIN HUMAN REGULAR (*BKC) 100 UNITS/ML 10 UNITS IV PUSH (15:07)
[2023-10-25 15:13] VITALS: BP 140/68; PULSE 89; RESP 20; TEMP 36.7; O2SAT 95
[2023-10-25 15:32] VITALS: BP 132/72; PULSE 84; RESP 20; O2SAT 95
[2023-10-25 16:02] VITALS: BP 131/74; PULSE 86; RESP 20; TEMP 36.6; O2SAT 97
[2023-10-25 16:05] LABS: Appearance Urine Clear (Clear); Bacteria Urine None Seen /hpf; Bilirubin Urine Negative (Negative); Blood Urine Negative (Negative); Color Urine Yellow (Yellow); Glucose Urine UA 3+ mg/dL (Negative); Hyaline Casts Urine Present /lpf; Ketones Urine Trace mg/dL (Negative); Leukocyte Esterase Ur Negative LEU/UL (Negative); Nitrate Urine Negative (Negative); Protein Urine 3+ mg/dL (Negative); RBC Urine 0-2 /hpf (0-2); Squamous Epithelial Cell Urine None Seen /hpf (Few); Urobilinogen Urine 0.2 mg/dL (<2.0); WBC Urine 0-5 /hpf (0-3); pH Urine 5.5 (5.0-9.0)
[2023-10-25 16:06] LABS: Glucose Point of Care 210 mg/dl (65-105)
[2023-10-25 16:08] LABS: Add Urine Microscopic? YES; Specific Grav Ur 1.047 (1.001-1.035)
[2023-10-25 16:32] VITALS: BP 130/77; PULSE 80; RESP 20; TEMP 36.6; O2SAT 96
[2023-10-25 18:24] LABS: Glucose Point of Care 187 mg/dl (65-105)
== END 2023-10-25 17:04 | disposition home or self-care (01) ==
PROVIDERS: Emergency Provider Physician Assistant; PCP Nurse Practitioner Family
DX: E11.65 Type 2 diabetes mellitus with hyperglycemia (principal); J45.909 Unspecified asthma, uncomplicated; I10 Essential (primary) hypertension; E78.5 Hyperlipidemia, unspecified; E66.9 Obesity, unspecified; Z68.32 Body mass index [BMI] 32.0-32.9, adult; G47.30 Sleep apnea, unspecified; Z87.891 Personal history of nicotine dependence; Z79.85 Long-term (current) use of injectable non-insulin antidiabetic drugs; Z79.82 Long term (current) use of aspirin; Z79.899 Other long term (current) drug therapy; Z79.4 Long term (current) use of insulin
CPT/HCPCS: 36415; 80053; 81001; 82010; 82948; 83735; 84100; 85025; 96361; 96374; 99284; J1815; J7120

== ENCOUNTER 2024-05-28 14:28 | Outpatient (CLI) | payer OTHER, MEDICAID, SELFPAY ==
--- NOTE | ~2024-05-28 | US_ITS ---
EXAM: Focused ultrasound examination of the soft tissues of the right groin HISTORY: R10.31 - Right lower quadrant pain TECHNIQUE: Sonographic evaluation of the soft tissues of the right groin were performed assessing gra yscale appearance and color Doppler flow. COMPARISON: Reference is made to CT examination of the abdomen and pelvis 04/2022. FINDINGS: Medial to the common femoral vasculature within the soft tissues of the right groin is a 10 to 12 mm focus of fibrofatty and fibromuscular elements without visualization of a fascial defect. This focus appears to move cranially and caudally with respiration. Sonographic evaluation of the remainder of the soft tissues of the right groin demonstrates benign fi brofatty and fibromuscular elements without a cystic or solid lesion of concern. IMPRESSION: No fascial defect is appreciated the submitted images of a focused ultrasound examination of the righ t groin, as detailed above. Reviewed, dictated and finalized at location A. IMMER IMPRESSION: No fascial defect is appreciated the submitted images of a focused ultrasound e xamination of the right groin, as detailed above.
--- OUTSIDE RECORDS SUMMARY | 2024-05-29 05:44 | XMS_ITS | Continuity of Care Document ---
Author Organization [facility] Address [address] [place] [phone] Phone Care Team Providers Care Physical Sciences Professor Name Role Phone CONV, [facility] Unavailable Unavailable Advance Directives Directive Yes / No Effective Date File Name No Information Encounters Encounter Description Practice Location Reason(s) For Visit Diagnoses Date Provider Providers Copied on Encounter [facility] /[facility], [address] [place] [address], [id number], [place] tel:[phone] Z [facility] CONV No Information CONV [facility]. [address] [place] [address], [id number], [place]. Family History Family Member Type Diagnosis Age At Onset No Information Immunizations Vaccine Date Status Comments TD, TETANUS-DIPHTHERIA administered [facility] e: New Immunization Record [id number], PED/ADL administered Source: New Immuniza tion Record DTP administered Source: New Imm unization Record ORAL POLIO administered Source: New Imm unization Record DTP administered Source: New Imm unization Record [id number], PED/ADL administered Source: New Immuniza tion Record ORAL POLIO administered Source: New Imm unization Record DTP administered Source: New Imm unization Record DTP administered Source: New Imm unization Record ORAL POLIO administered Source: New Imm unization Record DTP administered Source: New Imm unization Record ORAL POLIO administered Source: New Imm unization Record Payers Payer name Insurance type Covered constitution party ID Authoriza tion(s) No Information Social History Type Description Quantity Date Captured Comments Sex Male Smoking Status No Information Chief Complaint And Reason For Visit No Information History Of Present Illness Encounter Date Complaint History Of Prese nt Illness No Information Instructions Date Instruction Additional Infor mation No Information Assessments Type Assessment Date No Information Patient Care Teams Name Effective Dates (start - stop) Status Members No Information
--- OUTSIDE RECORDS SUMMARY | 2024-05-29 05:44 | XMS_ITS | Clinical Summary ---
Author Organization [facility] Address [address] [place] [address] Care Team Providers Care Coding Tech Name Role Phone Dede Armendariz DO Primary Care Provider [phone] Source Comments [facility],non-owned Affiliates and Associated Physician Practices is amultiple site organization consisting of ambulatory clinics and hospital sitesin [place], [place], [place] and [place]. This disclosure is being madepursuant to the Care Everywhere program and may not contain all information available regarding this patient. Last updated 18.[facility] [employer] Allergies No known active allergies Medications * Be aware that medications may not be up to date on this document. Alwaysverify current medications with the patient. Medication Sig Dispensed Refills Start Date End Date Status OMEPRAZOLE PO Active SIMVASTATIN PO Active PARoxetine HCl (PAXIL PO) Active METOPROLOL SUCCINATE ER PO Active Eluxadoline (VIBERZI PO) Active benzonatate (TESSALON) 200 MG capsuleIndications:Up per respiratory tract infection, unspecified type Take 1 capsule by mouth 3 times daily as needed for Cough 30 capsule 07/29/2017 Active metaxalone (SKELAXIN) 800 MG tablet Take 800 mg by mouth 4X/day PRN. 90 tablet 0 03/06/2017 Active ibuprofen (MOTRIN) 600 MG tablet Take 600 mg by mouth q6h PRN. 30 tablet 3 03/06/2017 Active Active Problems Problem Noted Date Diagnosed Date Closed fracture of scapula 03/06/2017 Immunizations Name Administration Dates Next Due PNEUMOCOCCAL PPSV23 03/06/2017 Social History Tobacco Use Types Packs/Day Years Used Date Smoking Tobacco: Some Days Smokeless Tobacco: Never Sex and Gender Information Value Date Recorded Sex Assigned at Not on file Gender Identity Not on file Sexual Orientation Not on file Last Filed Vital Signs Vital Sign Reading Time Taken Comments Blood Pressure 136/80 07/29/2017 10:34 AM CDT Pulse 69 07/29/2017 10:34 AM CDT Temperature 36.8 ??C (98.3 ??F) 07/29/2017 10:34 AM C DT Respiratory Rate 18 07/29/2017 10:34 AM CDT Oxygen Saturation 98% 07/29/2017 10:34 AM CDT Inhaled Oxygen Concentration - - Weight 106.6 kg (235 lb) 07/29/2017 10:34 AM CDT Height 182.9 cm (6') 07/29/2017 10:34 AM CDT Body Mass Index 31.87 07/29/2017 10:34 AM CDT Plan of Treatment Health Maintenance Due Date Last Done Comments HIV SCREENING 02/06/1995 HEPATITIS C SCREENING 02/02/1998 DTAP/TDAP/TD VACCINES (1 - Tdap) 02/06/1999 HEPATITIS B VACCINE (1 of 3 - 19+ 3-dose series) 02/06/1999 PNEUMOCOCCAL VACCINE (2 of 2 - PCV) 03/06/2018 03/06/2017 COVID-19 VACCINE (1 - 2023-2 5 season) 2024 INFLUENZA VACCINE (#1) 2024 DEPRESSION SCREENING 05/06/2024 ZOSTER VACCINE (1 of 2) 02/06/2030 HIB VACCINE Aged Out No longer eligi ble based on patient's age to complete this topic HPV VACCINE Aged Out No longer eligi ble based on patient's age to complete this topic MENINGOCOCCAL (Group B) VACCINE Aged Out No longer eligible based on patient's age to complete this topic MENINGOCOCCAL VACCINE Aged Out No genia horacio eligible based on patient's age to complete this topic Care Teams Coding Tech Relationship Specialty Start Date End Date Dede Armendariz DO [address] [place] [phone] PCP - General Family Medicine 07/29/17
--- OUTSIDE RECORDS SUMMARY | 2024-05-29 05:44 | XMS_ITS | Referral Summary ---
Author Organization [facility] Address [address] [place] [address] Care Team Providers Care Mechanical Unit Repairer Name Role Phone Dede Armendariz DO Primary Care Provider [phone] Source Comments [facility],non-owned Affiliates and Associated Physician Practices is amultiple site organization consisting of ambulatory clinics and hospital sitesin [place], [place], [place] and [place]. This disclosure is being madepursuant to the Care Everywhere program and may not contain all information available regarding this patient. Last updated 18.[facility] [employer] Allergies No known active allergies Medications * [...] 07/29/2017 10:34 AM CDT Plan of Treatment Not on file Care Teams Mechanical Unit Repairer Relationship Specialty Start Date End Date Dede Armendariz DO [address] [place] [phone] PCP - General Family Medicine 07/29/17
--- OUTSIDE RECORDS SUMMARY | 2024-05-29 05:45 | XMS_ITS | Clinical Summary ---
Author Organization [facility] Address [address] [place] [address] [place] [address] Care Team Providers Care Basting Puller Name Role Phone Unavailable Primary Care Provider Unavailabl e Allergies No known active allergies Medications liraglutide (VICTOZA) 0.6 mg/0.1 mL (18 mg/3 mL) INJECT 0.6 MG UNDER THE SKIN DAILY FOR 7 DAYS, THEN INCREASE TO 1.2 MG DAILY. NOT TO EXCEED 1.8 MG DAILY. 9 mL 1 10/29/2023 5:47 PM CDT 4 Active tirzepatide (Mounjaro) 2.5 mg/0.5 mL Pen Injector Inject 2.5 mg by subcutaneous injection every 7 days. 2 mL 12/29/2023 3:51 PM CDT 4 Active Encounters Date Type Department Care Team Description 05/26/2024 External Device Data [facility]CTION Provider, Abstract from Last 3 Months Social History Tobacco Use Types Packs/Day Years Used Date Smoking Tobacco: Never Assessed Sex and Gender Information Value Date Recorded Sex Assigned at Not on file Legal Sex Male 7:14 PM CDT Gender Identity Not on file Sexual Orientation Not on file Plan of Treatment Health Maintenance Due Date Last Done Comments DTAP/TDAP/TD VACCINES (1 - Tdap) 02/06/1999 HEPATITIS B VACCINES (1 of 3 - 19+ 3-dose series) 02/06/1999 INFLUENZA VACCINE (#1) 2023 HPV VACCINES Aged Out No longer eligi ble based on patient's age to complete this topic PNEUMOCOCCAL VACCINE 0-64 YEARS Aged Out No longer eligible based on patient's age to complete this topic Insurance [employer] Member Subscriber Plan / Payer (Ef fective 2023-Present) Name:Karlie Gilliam Relation to Subscriber:Spouse Subscriber ID:Not on file Payer ID:Not on file Group ID:[id number] Type:RX Commercial Address: [address]
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
--- OUTSIDE RECORDS SUMMARY | 2024-05-29 05:45 | XMS_ITS | Encounter Summary ---
Author Organization [facility] Address 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 Name Role Phone Unavailable Primary Care Provider Unavailabl e Encounter Details Date Type Department Care Team (Late st Contact Info) Description 05/26/2024 External Device Data [facility] ABSTRACTION Provider, Abstract NO ADDRESS ON FILE Social History Tobacco Use Types Packs/Day Years Used Date Smoking Tobacco: Never Assessed Sex and Gender Information Value Date Recorded Sex Assigned at Not on file Legal Sex Male 7:14 PM CDT Gender Identity Not on file Sexual Orientation Not on file documented as of this encounter Plan of Treatment Not on file documented as of this encounter Visit Diagnoses Not on filedocumented in this encounter
== END 2024-05-28 14:29 | disposition home or self-care (01) ==
LOC: ANHIMG 14:31
PROVIDERS: PCP Nurse Practitioner Family; Visit Provider Nurse Practitioner Family
DX: R10.31 Right lower quadrant pain (principal); K40.90 Unilateral inguinal hernia, without obstruction or gangrene, not specified as recurrent
CPT/HCPCS: 76882

== ENCOUNTER 2024-06-12 16:07 | Outpatient (CLI) | payer OTHER, MEDICAID, SELFPAY ==
--- NOTE | ~2024-06-12 | CT_ITS ---
CLINICAL INDICATION: Right lower quadrant pain COMPARISON: 04/24/2022. TECHNIQUE: Multiple contiguous axial images of the abdomen and pelvis were performed without the admi nistration of intravenous contrast The dose-length product (DLP) was 377.30 mGy-cm. Automated exposure control and iterative reconstruction technique were employed. FINDINGS/OBSERVATIONS: Visualized lower thorax: The bilateral lung bases are clear. The heart is of normal size, without pericardial effusion. Liver: The liver demonstrates homogeneous attenuation and is not enlarged measuring 18 cm in longitudinal di mension. Gallbladder and biliary system: The gallbladder is only minimally distended, and otherwise unremarkable. Pancreas: Limited evaluation of the pancreas secondary to the lack of intravenous contrast. Spleen: The spleen demonstrates homogeneous attenuation and is not enlarged measuring 11 cm in longitudinal d imension. Kidneys: 3 mm nonobstructing calculus within the upper pole of the left kidney. The remainder of the bilateral kidneys are unremarkable, without hydronephrosis or additional renal c alculi. Adrenal glands: Unremarkable. Gastrointestinal tract: Fecal stasis within the colon. Appendix: The air-filled appendix is of normal caliber (axial series, images 112 through 120). Vasculature: Unremarkable. Lymph nodes: No pathologically enlarged or morphologically suspicious lymph nodes within the retroperitoneum or at the root of the mesentery. Pelvic structures: The bladder is decompressed, and otherwise unremarkable. The prostate gland is not enlarged. Body wall and musculoskeletal: Large fat-containing umbilical hernia. The focus seen on ultrasound examination medial to the common femoral vasculature within the soft tis sues of the right groin (the region of clinical concern) is a nonpathologically enlarged or morpholog ically suspicious lymph node oriented perpendicular to the pelvic wall musculature. Fat is identified surrounding the spermatic cord bilaterally although minimally increased on the righ t. No significant degenerative disease within the lower thoracic or lumbosacral spine. IMPRESSION: The focus seen on ultrasound examination medial to the common femoral vasculature within the soft tis sues of the right groin (the region of clinical concern) is a nonpathologically enlarged or morpholog ically suspicious lymph node oriented perpendicular to the pelvic wall musculature. Fat is identified surrounding the spermatic cord bilaterally although minimally increased on the righ t. Nonobstructing left renal calculus. Normal appendix Reviewed, dictated and finalized at location A. CIATE TEAM PHYSICIAN IMPRESSION: The focus seen on ultrasound examination medial to the common femoral vasculatu re within the soft tissues of the right groin (the region of clinical concern) is a nonpathologically enlarged or morphologically suspicious lymph node orient ed perpendicular to the pelvic wall musculature. Fat is identified surrounding the spermatic cord bilaterally although minimally increased on the right. Nonobstructing left renal calculus. Normal appendix
--- OUTSIDE RECORDS SUMMARY | 2024-06-12 16:10 | XMS_ITS | Patient Health Summary ---
Author Organization [facility] Address [address] [facility] [place] [address] Care Team Providers Care Tax Associate Attorney Name Role Phone Dede Armendariz DO Primary Care Provider [phone] Note from [facility] [place] [facility] [place],non-owned Affiliates and Associated Physician Practices is amultiple site organization consisting of ambulatory clinics and hospital sitesin [place], [place], [place] and [place]. This disclosure is being madepursuant to the Care Everywhere program and may not contain all information available regarding this patient. Last updated 18.[facility] Allergies No known active allergies Medications * [...] 69 07/29/2017 10:34 AM CDT Temperature 36.8 C (98.3 F) 07/29/2017 10:34 AM CDT Respiratory Rate 18 07/29/2017 10:34 AM CDT [...] Yes Blood BLOOD SPECIMEN / Unknown 07/29/2017 [place] Alfredo [facility] LAB - POINT OF CARE ORDERABLES * XR SCAPULA RIGHT (05/13/2017 9:20 AM FLUE GAS ANALYST) Only the most recent of2 resultswithin the time period is included. Anatomical Region Laterality Modality Upper Extremity Other Impressions 05/13/2017 9:24 AM FLUE GAS ANALYST IMPRESSION: 1. Healing fracture of the scapular body. 2. Unchanged widening of the right acromioclavicular joint space. Dictated by Griselda Guo MD (vice president network development). I, Dr. SORAYA LARSEN M.D. have personally reviewed and interpreted this examination/study. This report was electronically signed by SORAYA LARSEN M.D. on 05/13/2017 9:24 AM . Narrative 05/13/2017 9:24 AM FLUE GAS ANALYST Exam: XR SCAPULA RIGHT History: Right Scapula [...] joint space. Dictated by Griselda Guo MD (vice president network development). I, Dr. SORAYA LARSEN M.D. have personally reviewed and interpreted thisexamination/study. This report was electronically signed by SORAYA LARSEN M.D. on 05/13/20179:24 AM . Gordo Lim DO DIAGNOSTIC IMAGING O RDERABLES * (ABNORMAL) CBC W AUTO DIFFERENTIAL (03/06/2017 4:38 AM CDT) Only the most recent of4 resultswithin the time period is included. WBC 18.6(H) 3.5 - 10.5 10 3/uL [facility] RBC 5.14 4.30 - 5.70 10 6/uL [facility] Hemoglobin 14.8 13.5 - 17.5 g/dL [facility] Hematocrit 43.7 39.0 - 50.0 % [facility] MCV 85.0 81.0 - 97.[address] [facility] MCH 28.8 28.0 - 34.[address] [facility] MCHC 33.9 32.0 - 36.0 g/dL [facility] Platelet Count 343 150 - 400 10 3/uL [facility] RDW-SD 40.8 36.0 - 50.[address] [facility] RDW-CV 13.3 11.2 - 14.8 % [facility] MPV 9.6 9.3 - 12.[address] [facility] nRBC Absolute 0.00 0 10 3/uL [facility] nRBC Auto 0.0 0 /[address] [facility] Neutrophils % 79.0(H) 35.0 - 70.0 % [facility] Lymphocytes % 14.0(L) 19.7 - 55.1 % [facility] Monocytes % 6.7 3.0 - 15.0 % [facility] Eosinophils % 0.2 0.0 - 6.0 % [facility] Basophil % 0.1 0.0 - 1.5 % [facility] Neutrophils Absolute 14.7(H) 1.6 - 7.0 10 3/uL [facility] Lymphocyte Absolute 2.6 0.8 - 2.9 10 3/uL [facility] Monocytes Absolute 1.24(H) 0.14 - 0.66 10 3/uL [facility] Eosinophils Absolute 0.03 0.00 - 0.22 10 3/uL [facility] Basophils Absolute 0.02 0.00 - 0.06 10 3/uL [facility] Immature Granulocytes % 0.3 0.0 - 1.0 % [facility] Blood specimen (specimen) BLOOD SPECIMEN / Unknown 03/06/2017 4:38 AM CDT 03/06/2017 5:00 AM CDT Rusty Chaparro MD LAB - HEMATOLOGY COLTEN CARPENTER Performing Organization Address [facility] Co de Phone Number [address] [phone] * (ABNORMAL) BASIC METABOLIC PANEL (CALCIUM TOTAL) (03/06/2017 4:38 AM CDT) BUN 11 7 - 26 mg/dL [facility] Creatinine 0.6 0.6 - 1.2 mg/dL [facility] Sodium 139 136 - 145 mmol/L [facility] Potassium 4.3 3.5 - 4.5 mmol/L [facility] Chloride 104 98 - 107 mmol/L [facility] CO2 21(L) 22 - 29 mmol/L [facility] Glucose 122(H) 70 - 115 mg/dL [facility] Calcium 9.2 8.4 - 10.2 mg/dL [facility] Anion Gap 18 8 - 18 [facility] BUN/Creatinine Ratio 18 7 - 23 [facility] Osmolality Calculated 289 270 - 300 mOsm/kg [facility] eGFR >60 >60 mL/min/1.[address] [facility] Blood specimen (specimen) BLOOD SPECIMEN / Unknown 03/06/2017 4:38 AM CDT 03/06/2017 5:00 AM CDT Rusty Chaparro MD LAB - CHEMISTRY JAMES SHRESTHA Performing Organization Address City/[facility]/ZIP Co de Phone Number [address] [phone] * CT CHEST ABDOMEN PELVIS W CONT (03/05/2017 10:32 PM CDT) Anatomical Region Laterality Modality Chest, Abdomen, Pelvis Other Impressions 03/06/2017 9:00 AM CDT IMPRESSION: 1. Nondisplaced right scapular body fracture. Intact glenoid without shoulder dislocation. 2. No acute visceral or vascular injury in the chest, abdomen or pelvis. Report dictated by Yazan Pathak MD (vice president network development). I, Dr. Zi DERAS M.D. have personally reviewed and interpreted this examination/study. This report was electronically signed by Zi DERAS M.D. on 03/06/2017 9:00 AM . Narrative 03/06/2017 9:00 [...] pelvis. Report dictated by Yazan Pathak MD (vice president network development). IDr. Zi M.D. have personally reviewed and interpreted thisexamination/study. [...] electronically signed by RICO YANG M.D. on 03/06/2017 7:21 AM . Narrative 03/06/2017 7:21 [...] electronically signed by RICO YANG M.D. on 03/06/2017 7:21 AM . Narrative 03/06/2017 7:21 [...] electronically signed by RICO YANG M.D. on 03/06/2017 7:21 AM . Narrative 03/06/2017 7:21 [...] electronically signed by RICO YANG M.D. on 03/06/2017 7:21 AM . Narrative 03/06/2017 7:21 [...] dislocation identified. Dictated by Marlena Toure MD (vice president network development). I, Dr. DAMIAN VALENTE MD have personally reviewed and interpreted this examination/study. This report was electronically signed by DAMIAN VALENTE MD on 03/06/2017 8:27 AM . Narrative 03/06/2017 8:27 [...] dislocation identified. Dictated by Marlena Toure MD (vice president network development). Dr. DAMIAN Mcdonald MD have personally reviewed and interpreted thisexamination/study. This report was electronically signed by DAMIAN VALENTE MD on 03/06/20178:27 AM . Reema Medrano MD DIAGNOSTIC IMAGING O RDERABLES * XR PELVIS 1 OR 2VW (03/05/2017 9:55 PM CDT) Anatomical Region Laterality Modality Pelvis Other Impressions 03/06/2017 8:26 AM CDT IMPRESSION: No acute fracture or dislocation identified. Dictated by Uziel Gregory MD (vice president network development). Dr. DAMIAN Mcdonald MD have personally reviewed and interpreted this examination/study. This report was electronically signed by DAMIAN VALENTE MD on 03/06/2017 8:26 AM . Narrative 03/06/2017 8:26 [...] dislocation identified. Dictated by Uziel Gregory MD (vice president network development). Dr. DAMIAN Mcdonald MD have personally reviewed and interpreted thisexamination/study. This report was electronically signed by DAMIAN VALENTE MD on 03/06/20178:26 AM . Reema Medrano MD DIAGNOSTIC IMAGING O RDERABLES * XR HUMERUS RIGHT 2VW OR MORE (03/05/2017 9:55 PM CDT) Anatomical Region Laterality Modality Upper Extremity Other Impressions 03/06/2017 8:25 AM CDT IMPRESSION: No humeral fracture. Dictated by Uziel Gregory MD (vice president network development). Dr. DAMIAN Mcdonald MD have personally reviewed and interpreted this examination/study. This report was electronically signed by DAMIAN VALENTE MD on 03/06/2017 8:25 AM . Narrative 03/06/2017 8:25 [...] humeral fracture. Dictated by Uziel Gregory MD (vice president network development). Dr. DAMIAN Mcdonald MD have personally reviewed [...] dislocation identified. Dictated by Marlena Toure MD (vice president network development). Dr. DAMIAN Mcdonald MD have personally reviewed and interpreted this examination/study. This report was electronically signed by DAMIAN VALENTE MD on 03/06/2017 8:24 AM . Narrative 03/06/2017 8:24 [...] dislocation identified. Dictated by Marlena Toure MD (vice president network development). Dr. DAMIAN Mcdonald MD have personally reviewed and interpreted thisexamination/study. This report was electronically signed by DAMIAN VALENTE MD on 03/06/20178:24 AM . Reema Medrano MD DIAGNOSTIC IMAGING O RDERABLES * XR CHEST 1VW PORTABLE (03/05/2017 9:55 PM CDT) Anatomical Region Laterality Modality Chest Other Impressions 03/06/2017 8:24 AM CDT IMPRESSION: No acute pulmonary process. Dictated by Uziel Gregory MD (vice president network development). Dr. DAMIAN Mcdonald MD have personally reviewed and interpreted this examination/study. This report was electronically signed by DAMIAN VALENTE MD on 03/06/2017 8:24 AM . Narrative 03/06/2017 8:24 [...] pulmonary process. Dictated by Uziel Gregory MD (vice president network development). I, Dr. DAMIAN VALENTE MD have personally reviewed and interpreted thisexamination/study. This report was electronically signed by DAMIAN VALENTE MD on 03/06/20178:24 AM . Reema Medrano MD DIAGNOSTIC IMAGING O RDERABLES * (ABNORMAL) COMPREHENSIVE METABOLIC PANEL (03/05/2017 9:51 PM CDT) BUN 13 7 - 26 mg/dL [facility] Creatinine 0.6 0.6 - 1.2 mg/dL [facility] Sodium 138 136 - 145 mmol/L [facility] Potassium 3.5 3.5 - 4.5 mmol/L [facility] Chloride 104 98 - 107 mmol/L [facility] CO2 19(L) 22 - 29 mmol/L [facility] Glucose 115 70 - 115 mg/dL [facility] Calcium 9.5 8.4 - 10.2 mg/dL [facility] Protein Total 7.5 6.0 - 8.3 g/dL [facility] Albumin 3.9 3.4 - 5.0 g/dL [facility] Bilirubin Total 0.3 0.2 - 1.2 mg/dL [facility] Alkaline Phosphatase 76 40 - 150 Units/L [facility] ALT 25 0 - 55 Units/L [facility] AST 25 5 - 34 Units/L [facility] Anion Gap 19(H) 8 - 18 [facility] BUN/Creatinine Ratio 22 7 - 23 [facility] Osmolality Calculated 287 270 - 300 mOsm/kg [facility] Albumin/Globulin Ratio 1.1 1.1 - 2.3 [facility] eGFR >60 >60 mL/min/1.[address] [facility] Blood specimen (specimen) BLOOD SPECIMEN / Unknown 03/05/2017 9:51 PM CDT 03/05/2017 9:54 PM CDT Reema Medrano MD LAB - CHEMISTRY ORDDenise SHRESTHA [address] [phone] * LIPASE BLOOD (03/05/2017 9:51 PM CDT) Lipase 15 8 - 78 Units/L [facility] Blood specimen (specimen) BLOOD SPECIMEN / Unknown 03/05/2017 9:51 PM CDT 03/05/2017 9:54 PM CDT Reema Medrano MD LAB - CHEMISTRY JAMES SHRESTHA Performing Organization Address [facility]/ZIP Co de Phone Number [address] [phone] * AMYLASE BLOOD (03/05/2017 9:51 PM CDT) Amylase 33 25 - 125 Units/L [facility] Blood specimen (specimen) BLOOD SPECIMEN / Unknown 03/05/2017 9:51 PM CDT 03/05/2017 9:54 PM CDT Reema Medrano MD LAB - CHEMISTRY JAMES SHRESTHA Performing Organization Address [facility]/ZIP Co de Phone Number [address] [phone] * (ABNORMAL) ALCOHOL ETHYL BLOOD (03/05/2017 9:51 PM CDT) Ethanol (mg/dL) 70(H) None Detected mg/dL [facility] Comment:Ethanol in the patie nt's blood will contribute to the osmolar gap. Ethanol's contribution to the osmolar gap can be estimated by dividing the concentration of ethanol in mg/dL by 4.6. Blood specimen (specimen) BLOOD SPECIMEN / Unknown 03/05/2017 9:51 PM CDT 03/05/2017 9:54 PM CDT Reema Medrano MD LAB - CHEMISTRY ORDE RABLES Performing Organization Address [facility] Co de Phone Number [address] [phone] * PTT SLU (03/05/2017 9:51 PM CDT) APTT 23.8 23.0 - 38.[address] [facility] Comment:Suggested therapeuti c range for full dose I.V. heparin therapy for venous thromboembolism is 66.0-91.0 seconds. Blood specimen (specimen) BLOOD SPECIMEN / Unknown 03/05/2017 9:51 PM CDT 03/05/2017 9:[address] [facility] - 03/05/2017 10:06 PM CDT Please ensure that the aPTT specimen is received in the clinical lab within 1 hour of collection if it is used for therapeutic heparin monitoring. Processing of heparinized specimens older than 1 hour may result in inaccurate test results. Is patient on Heparin, Argatroban or Dabigatran?->N Reema Medrano MD LAB - COAGULATION OR DERABLES Performing Organization Address [facility] Co de Phone Number [address] [phone] * PT-INR [facility] (03/05/2017 9:51 PM CDT) PT 12.9 12.1 - 14.[address] [facility] INR 1.[address] [facility] Comment: Suggested therapeutic range for low-intensity coumadin therapy for venous thromboembolism prophylaxis is an INR of 2.0-3.0. For high risk patients (Mitral Valve Prosthesis, Atrial Fibrillation, history of TIA/stroke), suggested prophylactic therapeutic range is an INR of 2.5-3.5. Blood specimen (specimen) BLOOD SPECIMEN / Unknown 03/05/2017 9:51 PM CDT 03/05/2017 9:[address] [facility] - 03/05/2017 10:09 PM CDT Is patient on Heparin, Argatroban or Dabigatran?->N Reema Medrano MD LAB - COAGULATION OR DERABLES Performing Organization Address City/[facility]/ZIP Co de Phone Number [address] [phone] * (ABNORMAL) DIFFERENTIAL MANUAL (03/05/2017 9:51 PM CDT) WBC (corrected for NRBC) 17.5 10 3/uL [facility] Total Cell Count 100 [facility] Neutrophils Absolute Manual 11.73(H) 1.60 - 7.00 10 3/uL [facility] Comment:(BANDS+SEGS) x WBC = NEUT # (ANC) Lymphocyte Absolute Manual 4.73(H) 0.80 - 2.90 10 3/uL [facility] Monocytes Absolute Manual 0.35 0.14 - 0.66 10 3/uL [facility] Eosinophils Absolute Manual 0.53(H) 0.00 - 0.22 10 3/uL [facility] Band % Manual 1 0 - 10 % [facility] Neutrophil % Manual 66(H) 30 - 60 % [facility] Lymphocyte % Manual 27 20 - 45 % [facility] Monocytes % Manual 2 2 - 10 % [facility] Eosinophils % Manual 3 1 - 6 % [facility] Atypical Lymphocyte % Manual 1(H) 0 % [facility] Platelet Estimate Adequate Adequate [facility] RBC Morphology Normal [facility] Blood specimen (specimen) BLOOD SPECIMEN / Unknown 03/05/2017 9:51 PM CDT 03/05/2017 9:54 PM CDT Reema Medrano MD LAB - HEMATOLOGY ORD ERABLES Performing Organization Address City/[facility]/[place] [address], [place] [phone] * TYPE + SCREEN PANEL (03/05/2017 9:51 PM CDT) Typem A POS [facility] Antibody Screen NEG [facility] Blood specimen (specimen) 03/05/2017 9:51 PM CDT 03/05/2017 10:03 PM CDT Reema Medrano MD LAB - BLOOD BANK ORD ERABLES [facility] [address] * (ABNORMAL) DRUG ABUSE PANEL 10-20+ETHANOL URINE NO CONFIRM (03/05/2017 9:51 PM CDT) Amphetamines Screen Urine Negative Negative : < 1000 ng/mL [facility] Barbiturates Screen Urine Negative Negative : < 200 ng/mL [facility] Benzodiazepine Screen Urine Negative Negative : < 200 ng/mL [facility] Opiates Urine Negative Negative : < 300 ng/mL [facility] Cocaine Metabolites Urine Negative Negative : < 300 ng/mL [facility] Phencyclidine Screen Urine Negative Negative : < 25 ng/ml [facility] Cannabinoids Screen Urine Positive(A) Negative : <50 ng/mL [facility] Comment: Positive urine cannabinoids (THC) screening results should be confirmed by another generally accepted non-immunological method such as gas chromatography or mass spectrometry. Methadone Screen Urine Negative Negative : < 300 ng/mL [facility] Urine specimen (specimen) URINE / Unknown 03/05/2017 9:51 PM CDT 03/05/2017 9:54 PM CDT Narrative [facility] - 03/05/2017 10:08 PM CDT The Urine Toxicology Screening Panel does not screen for Propoxyphene, Meprobamate, Carisoprodol, Trazodone, [id number] medications and/or volatiles (Acetone, Isopropanol, Methanol or Ethylene Glycol). Ethanol, Salicylate, Acetaminophen, Tricyclic Antidepressants and several therapeutic drugs may be individually assayed in serum or plasma specimen. Toxicology testing by the [facility] is an aid to medical diagnosis and treatment of patients. No documented chain of custody was maintained. Results are intended to be used for clinical purposes only. Reema Medrano MD LAB - URINE CHEMISTR Y ORDERABLES Performing Organization Address City/State/[facility] Co de Phone Number [facility] [address] [place], [place] [id number] [place] [address] Care Teams Tax Associate Attorney Relationship Specialty Start Date End Date Dede Armendariz DO [address] [place] [phone] PCP - General Family Medicine 07/29/17
--- OUTSIDE RECORDS SUMMARY | 2024-06-12 16:10 | XMS_ITS | Clinical Summary ---
Author Organization [facility] Address [address] [place] [address] Care Team Providers Care Water Control Station Engineer Name Role Phone Unavailable Primary Care Provider [...] Encounters Date Type Department Care Team Description 06/09/2024 External Device Data [facility] Provider, Abstract 05/26/2024 External Device Data [facility] Provider, [...] Subscriber Plan / Payer (Ef fective 2023-Present) Name:Jaylen Gilliamley Relation to Subscriber:Spouse Subscriber ID:Not on file Payer ID:Not on file Group ID:[id number] Type:RX Commercial Address: DEYANIRA RUIZ
--- OUTSIDE RECORDS SUMMARY | 2024-06-12 16:12 | XMS_ITS | Clinical Summary ---
Author Organization [facility] Address [address] [place] [address] Care Team Providers Care Box Office Agent Name Role Phone Dede Armendariz DO Primary Care Provider [phone] Source Comments [facility],non-owned Affiliates and Associated Physician Practices is amultiple site organization consisting of ambulatory clinics and hospital sitesin [place], [place], [place] and [place]. This disclosure is being madepursuant to the Care Everywhere program and may not contain all information available regarding this patient. Last updated 18.[facility] [employer](TM) by [employer] Allergies No known active allergies Medications * [...] age to complete this topic Care Teams Box Office Agent Relationship Specialty Start Date End Date Dede Armendariz DO [address] [place] [phone] PCP - General Family Medicine 07/29/17
--- OUTSIDE RECORDS SUMMARY | 2024-06-12 16:12 | XMS_ITS | Referral Summary ---
Author Organization [facility] Address [address] [place] [address] Care Team Providers Care Assistant County Attorney Name Role Phone Dede Armendariz DO Primary Care Provider [phone]- [phone] Source Comments [facility],non-owned Affiliates and Associated Physician Practices is amultiple site organization consisting of ambulatory clinics and hospital sitesin [place], [place], [place] and [place]. This disclosure is being madepursuant to the Care Everywhere program and may not contain all information available regarding this patient. Last updated 18.[facility] [employer] Allergies No known active allergies Medications * [...] of Treatment Not on file Care Teams Assistant County Attorney Relationship Specialty Start Date End Date Dede Armendariz DO [address] [place] [phone] PCP - General Family Medicine 07/29/17
== END 2024-06-12 16:08 | disposition home or self-care (01) ==
PROVIDERS: PCP Nurse Practitioner Family; Visit Provider Nurse Practitioner Family
DX: D17.6 Benign lipomatous neoplasm of spermatic cord (principal); N20.0 Calculus of kidney; R10.31 Right lower quadrant pain; R59.0 Localized enlarged lymph nodes
CPT/HCPCS: 74176

== ENCOUNTER 2024-07-25 07:53 | Outpatient (CLI) | payer OTHER, MEDICAID, SELFPAY ==
--- NOTE | ~2024-07-25 | MR_ITS ---
EXAMINATION: MR pelvis wo/w con DATE: 07/25/2024 08:56 INDICATION: Right lower quadrant pain TECHNIQUE: Magnetic resonance imaging (MRI) of the pelvis was performed without and with 20 mL ProHan ce intravenous contrast. Sequences included axial, sagittal and coronal T1-weighted FSE and T2-weight ed FS FSE, axial dual-echo T1-weighted FSPGR and post contrast axial, sagittal and coronal T1-weighte d FS FSE. A marker was placed over the site of maximal pain overlying the right anterior iliac spine. COMPARISON: CT dated 06/12/2024 FINDINGS: Bladder, prostate and visualized portions of bowels including and appendix are normal. Small bilatera l fat-containing inguinal hernias. Small fat-containing umbilical hernia. No free fluid in the pelvis . No pathologically enlarged pelvic or inguinal lymphadenopathy. No abnormally enhancing lesions iden tified. There is a tear of the left acetabular labrum. There is normal bone marrow signal throughout. IMPRESSION: 1. Small fat-containing umbilical and bilateral inguinal hernias. 2. Tear of the left acetabular labrum. Reviewed, dictated and finalized at location B.
--- OUTSIDE RECORDS SUMMARY | 2024-07-25 07:56 | XMS_ITS | Clinical Summary ---
Author Organization [facility] Address [address] [place] [address] Care Team Providers Care Director Oracle Database Name Role Phone Dede Armendariz DO Primary Care Provider [phone] Source Comments [facility],non-owned Affiliates and Associated Physician Practices is amultiple site organization consisting of ambulatory clinics and hospital sitesin [place], [place], [place] and [place]. This disclosure is being madepursuant to the Care Everywhere program and may not contain all information available regarding this patient. Last updated 18.[facility] [employer] Allergies No known active allergies Medications * [...] 2 - PCV) 03/06/2018 03/06/2017 COVID-19 VACCINE ( - 2023-2 5 season) 2024 INFLUENZA VACCINE (#1) 2024 DEPRESSION SCREENING 05/06/2024 ZOSTER VACCINE (1 of 2) 02/06/2030 HIB VACCINE Aged Out No longer eligi ble based on patient's age to complete this topic HPV VACCINE Aged Out No longer eligi ble based on patient's age to complete this topic MENINGOCOCCAL (Group B) VACC INE SHARED DECISION-MAKING Aged Out No longer eligibl e based on patient's age to complete this topic MENINGOCOCCAL GROUPS A/C/Y/W VACCINE Aged Out No longer eligible b ased on patient's age to complete this topic Care Teams Director Oracle Database Relationship Specialty Start Date End Date Dede Armendariz DO [address] [place] [phone] PCP - General Family Medicine 07/29/17
--- OUTSIDE RECORDS SUMMARY | 2024-07-25 07:56 | XMS_ITS | Clinical Summary ---
Author Organization [facility] Address [address] [place] [address] Care Team Providers Care Pole Cutter Name Role Phone Unavailable Primary Care Provider [...] Encounters Date Type Department Care Team Description 06/30/2024 External Device Data [facility] ABSTRACTION Provider, Abstract 06/09/2024 External Device Data [facility] ABSTRACTION Provider, [...] age to complete this topic PNEUMOCOCCAL VACCINE 0-49 YEARS Aged Out No longer eligible based on patient's age to complete this topic Insurance [employer] Commercial RX [employer] RX Member Subscriber Plan / Payer (Ef fective 2023-Present) Name:RodrgiueroxanaJaylenKarlie Relation to Subscriber:Spouse Subscriber ID:Not on file Payer ID:Not on file Group ID:[id number] Type:RX Commercial Address: [address]
== END 2024-07-25 07:54 | disposition home or self-care (01) ==
PROVIDERS: PCP Nurse Practitioner Family; Visit Provider Surgery
DX: R10.31 Right lower quadrant pain (principal); K42.9 Umbilical hernia without obstruction or gangrene; K40.20 Bilateral inguinal hernia, without obstruction or gangrene, not specified as recurrent; S73.101A Unspecified sprain of right hip, initial encounter
CPT/HCPCS: 72197; A9579

== ENCOUNTER 2024-08-24 14:04 | Outpatient (CLI) | payer OTHER, MEDICAID, SELFPAY ==
--- NOTE | 2024-08-24 14:00 | ECG_ITS ---
Test Date: 2024-08-24 14:23:11 Measurements Intervals [place] Rate: 76 P: 47 [place]: 180 QRS: 37 QRSD: 94 T: 106 QT: 353 QTc: 398 Interpretive Statements SINUS RHYTHM MINIMAL Q WAVES- INFERIOR LEADS NONSPECIFIC T-WAVE ABNORMALITY- HIGH LATERAL LEADS BASELINE ARTIFACT- AVR, AVL, V4-V6 BORDERLINE ECG No previous ECG available for comparison Electronically Signed On 08-24-2024 15:53:20 CDT by Judha Pérez D.O.
[2024-08-24 15:07] LABS: Anion Gap 7 mmol/L (4-12); Blood Urea Nitrogen 11 mg/dL (9-20); Calcium 9.2 mg/dL (8.4-10.2); Carbon Dioxide 30 mmol/L (22-30); Chloride 101 mmol/L (98-107); Estimated Glomerular Filt Rate > 60; Glucose 112 mg/dL (65-110); Potassium 4.2 mmol/L (3.4-5.0); Sodium 138 mmol/L (137-145)
--- OUTSIDE RECORDS SUMMARY | 2024-08-24 16:02 | XMS_ITS | Clinical Summary ---
Author Organization [facility] Address [address] [place] [address] Care Team Providers Care Taxi Proprietor Name Role Phone Unavailable Primary Care Provider [...] Subscriber Plan / Payer (Ef fective 2023-Present) Name:RodrigueroxanaJaylenKarlie Relation to Subscriber:Spouse Subscriber ID:Not on file Payer ID:Not on file Group ID:[id number] Type:RX Commercial Address: [address]
--- OUTSIDE RECORDS SUMMARY | 2024-08-24 16:04 | XMS_ITS | Clinical Summary ---
Author Organization [facility] Address [address] [place] [address] Care Team Providers Care Associate Counsel Name Role Phone Dede Armendariz DO Primary Care Provider [phone] Source Comments [facility],non-owned Affiliates and Associated Physician Practices is amultiple site organization consisting of ambulatory clinics and hospital sitesin [place], [place]. This disclosure is being madepursuant to the Care Everywhere program and may not contain all information available regarding this patient. Last updated 18.[facility] [employer] Allergies No known active allergies Medications * Be aware that medications may not be up to date on this document. Alwaysverify current medications with the patient. 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
== END 2024-08-24 14:05 | disposition home or self-care (01) ==
LOC: ANHSURGERY 14:09
PROVIDERS: Anesthesiology; PCP Nurse Practitioner Family; Visit Provider Surgery
DX: E11.9 Type 2 diabetes mellitus without complications (principal); I10 Essential (primary) hypertension; E78.5 Hyperlipidemia, unspecified; F17.210 Nicotine dependence, cigarettes, uncomplicated; R10.31 Right lower quadrant pain; K42.9 Umbilical hernia without obstruction or gangrene
CPT/HCPCS: 36415; 80048; 86850; 86900; 86901; 93005

== ENCOUNTER 2024-09-02 01:03 | Day surgery (SDC) | payer OTHER, MEDICAID, SELFPAY ==
[2024-08-24 13:33] VITALS: BMI 32.4
--- NOTE | 2024-08-24 13:35 | PC.NURSE ---
Report to the Outpatient Waiting Room, entrance under the green pavilion located off [facility], at time _0730_ on date _[id number]_. Planned Procedure Time: _0930_.? Time changes happen often and if your time is changed the preop area will call you the afternoon before. - You and your visitor will be asked to self-screen and do not enter if you have any COVID symptoms. Please call surgeon if you need to reschedule. - A mask is optional within the hospital at this time. Patients may have clear liquids (water, carbonated beverages, clear teas, apple juice) until 3 hours prior to surgery with a maximum of 20 ounces. - No food from midnight until time of surgery and no smoking, or chewing tobacco (or any form of nicotine). No chewing gum, candy or mints. Take only the following medications with a SIP of water on the morning of surgery: __None DO NOT STOP ANY OF YOUR OTHER PRESCRIPTION MEDICATIONS PRIOR TO SURGERY EXCEPT THE FOLLOWING Hold all vitamins and supplements for 3 days per anesthesiologist. Medications to discontinue per physician Date to take last dose Please no make-up, nail faroese, hairspray, perfume, deodorant, or body powder the day of surgery.? No jewelry (including any body piercings) or valuables the day of surgery, leave them at home.? Please take a shower or bath the night before, or the morning of, surgery with an antibacterial soap.? Wear comfortable, loose fitting clothing.? - Jewelry must be removed prior to entering the operating room.? Rings and piercings that are not removed may be cut off. - The hospital will not accept responsibility for valuables.? - Please leave all valuables, including medications, at home the day of surgery. If you are going home after surgery, a licensed sprinkler driver must drive you home.? - NO public transportation without another adult if you receive anesthesia. - We recommend that an adult stay with you for 24 hours following discharge. - We also recommend that you do not drive, make important decision, drink alcoholic beverages, or take any drugs that were not prescribed by your health care provider for at least 24 hours after your discharge time. Follow any additional instructions given to you from your surgeon. Telephone instructions given to __Karlie__and asked if any additional questions and then verbalized understanding. Patient advised to call surgeon office or pre surgery nurse liaison [phone] if any additional questions.
[2024-09-02] VITALS (11 sets, daily range): BP systolic 117–149; BP diastolic 48–92; PULSE 64–84; RESP 12–20; TEMP 36.1–36.4; O2SAT 94–99; BMI 31.5
--- OUTSIDE RECORDS SUMMARY | 2024-09-02 01:07 | XMS_ITS | Continuity of Care Document ---
Author Organization [facility] Address [address] [place] [phone] Phone Care Team Providers Care Physician Practice Coordinator Name Role Phone CONV, [facility] Unavailable Unavailable Advance Directives Directive Yes / No Effective Date File Name No Information Encounters Encounter Description Practice Location Reason(s) For Visit Diagnoses Date Provider Providers Copied on Encounter [facility] /[facility], [address] [place] [address], [address], [place] tel:[phone] Z [facility] CONV No Information CONV [facility]. [address] [place] [address], [id number], [place]. Family History Family Member Type Diagnosis Age At Onset No Information Immunizations Vaccine Date Status Comments TD, TETANUS-DIPHTHERIA administered [facility] e: New Immunization Record [id number], PED/ADL administered Source: New Immuniza tion Record DTP administered Source: New Imm unization Record ORAL POLIO administered Source: New Imm unization Record DTP administered Source: New Imm unization Record [id number], PED/ADL administered Source: New Immuniza tion Record ORAL POLIO administered Source: New Imm unization Record DTP administered Source: New Imm unization Record DTP administered Source: New Imm unization Record ORAL POLIO administered Source: New Imm unization Record DTP administered Source: New Imm unization Record ORAL POLIO administered Source: New Imm unization Record Payers Payer name Insurance type Covered republican ID Authoriza tion(s) No Information Social History [...]
--- OUTSIDE RECORDS SUMMARY | 2024-09-02 01:07 | XMS_ITS | Clinical Summary ---
Author Organization [facility] Address [address] [place] [address] [place] [address] Care Team Providers Care Revenue Audit Clerk Name Role Phone Unavailable Primary Care Provider [...]
--- OUTSIDE RECORDS SUMMARY | 2024-09-02 01:07 | XMS_ITS | Clinical Summary ---
Author Organization [facility] Address [address] [place] [address] Care Team Providers Care Luggage Liner Name Role Phone Dede Armendariz DO Primary Care Provider [phone] Source Comments [facility],non-owned Affiliates and Associated Physician Practices is amultiple site organization consisting of ambulatory clinics and hospital sitesin [place], [place], [place] and [place]. This disclosure is being madepursuant to the Care Everywhere program and may not contain all information available regarding this patient. 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
[2024-09-02] MEDS: LACTATED RINGERS 1,000 ML 30 ML IV CONT ×2 (08:15→11:27)
[2024-09-02] MEDS: ACETAMINOPHEN 500 MG TABLET 1000 MG PO (08:28)
[2024-09-02] MEDS: KETOROLAC 15 MG/ML VIAL (*BKC) IV PUSH (08:28)
[2024-09-02 08:33] LABS: Glucose Point of Care 118 mg/dl (65-105)
--- NOTE | 2024-09-02 09:03 | P.HP_ITS ---
H&P: HPI History of Present Illness Date/Time: 09/02/24 09:03 Chief Complaint: Bilateral inguinal hernia, umbilical hernia Narrative: This is a 44-year-old man who presents for bilateral inguinal hernia repair and umbilical hernia repair. He was seen in the office complaining of groin pain. Initial imaging showed no evidence of hernia, but then an MRI showed evidence of bilateral inguinal hernia and a small umbilical hernia. He now presents for repair. He reports no changes since last seen in the office. Review of Systems Review of Systems: All systems reviewed & are unremarkable except as noted in HPI and below Constitutional: Constitutional: Denies chills, Denies fever(s), Denies headache(s) and Denies weight loss Eyes: Eyes: Denies change in vision ENT: Denies dizziness, Denies headache(s), Denies neck mass and Denies throat swelling Cardiovascular: Cardiovascular: Denies chest pain, Denies lightheadedness and Denies dyspnea Respiratory: Respiratory: Denies cough, Denies dyspnea and Denies wheezing Gastrointestinal: Gastrointestinal: Denies abdominal pain, Denies change in bowel habits, Denies nausea and Denies vomiting Genitourinary: Genitourinary: Denies hematuria and Denies dysuria Musculoskeletal: Musculoskeletal: Reports as per HPI Integumentary/Breasts: Skin/Breast: Reports as per HPI Neurologic: Denies dizziness and Denies headache(s) Allergic/Immunologic: Allergic/Immunologic: Denies throat swelling and Denies wheezing [facility] Past Medical History Medical History (Updated 09/02/24 @ 09:05 by Prosper Garrett DO) Sleep apnea IBS (irritable bowel syndrome) GERD (gastroesophageal reflux disease) Asthma Hypertension Hyperlipidemia Diabetes Surgical History Surgical History History of removal of retained hardware (~09/19/21) Rt Ankle, with Incision & Drainage History of open reduction and internal fixation (ORIF) procedure (~09/29/20) Ankle Status post ORIF of fracture of ankle H/O shoulder surgery Rt shoulder Hx of adenoidectomy Hx of tonsillectomy Family History Family History (Updated 07/03/24 @ 09:39 by Jus Saldana MA) Mother Family history of mental disorder Hypertension Father Hypertension Family history of elevated blood lipids Alcoholism Social History Social History Smoking packs per day: 1 Smoking cigarettes per day: 20.0 Years smoked: 20 Smoking pack-years: 20.00 Smoking status: Current every day smoker Tobacco type: cigarettes Second hand tobacco smoke exposure: Yes Smoking end date: 05/06/09 Alcohol intake: current Drinks per week: 1 Alcohol use details: 5/MONTH Substance use: current Substance use type: marijuana Other substance usage details: Not every day. Last use: 03/24/21 Living arrangements: with family Additional living arrangements comments: Occupation/Education: occupation Gender identity (if verbalized by the patient): Male Sexual Orientation (if Verbalized by the Patient): Straight or Heterosexual Spiritual care concerns: No Agree to blood products: Yes Meds Home Medications and Allergies Home Medications ?Medication ?Instructions ?Recorded ?Confirmed ?Type aspirin 81 mg tablet,delayed 81 mg PO DAILY 09/15/21 09/02/24 History release omega-3 fatty acids-vitamin E 1 cap PO DAILY 09/15/21 09/02/24 History 1,000 mg capsule blood sugar diagnostic (OneTouch #100 ea 02/24/24 08/24/24 Rx Ultra Test strips) pen needle, diabetic 32 gauge x #100 ea 03/23/24 08/24/24 Rx (TRUEplus Pen Needle) simvastatin 20 mg tablet See Rx Instructions .Route 04/03/24 09/02/24 Rx .COMPLEX #90 tabs metoprolol succinate 25 mg See Rx Instructions .Route 05/26/24 09/02/24 Rx tablet,extended release 24 hr .COMPLEX #90 tabs paroxetine HCl 40 mg tablet See Rx Instructions .Route 05/26/24 09/02/24 Rx .COMPLEX #180 tabs nicotine 21 mg/24 hr daily 1 patch transdermal DAILY #28 ea 06/03/24 08/24/24 Rx transdermal patch sildenafil 100 mg tablet (Viagra) 100 mg PO DAILY PRN sexual 06/22/24 08/24/24 Rx activity #30 tabs omeprazole 40 mg capsule,delayed See Rx Instructions .Route 07/06/24 09/02/24 Rx release .COMPLEX #90 caps insulin glargine 100 unit/mL (3 30 unit (0.3 mL) subcut QPM #15 mL 08/06/24 09/02/24 Rx mL) subcutaneous pen (Lantus Solostar U-100 Insulin) methocarbamol 500 mg tablet See Rx Instructions .Route 08/06/24 08/24/24 Rx .COMPLEX #30 tabs alprazolam 1 mg tablet 1 mg PO BID PRN anxiety #60 tabs 08/07/24 08/24/24 Rx albuterol sulfate 90 mcg/actuation See Rx Instructions .Route 08/31/24 Rx aerosol inhaler .COMPLEX #18 grams semaglutide 0.25 mg or 0.5 mg (2 0.5 mg (0.736 mL) subcut WEEKLY #3 08/31/24 Rx mg/3 mL) subcutaneous pen injector mL (Ozempic) Allergies Allergy/AdvReac Type Severity Reaction Status Date / Time No Known Allergies Allergy Verified 09/02/24 08:06 Exam Const: General: no acute distress and alert Orientation/consciousness: patient oriented x3 HENMT: Head: normocephalic and atraumatic Ears: hearing grossly normal bilaterally Face/Nose/Sinus: Normal nares present Mouth: Yes Normal oral and palatal mucosa present Eyes: Periorbital: periorbital findings normal Sclera: sclerae normal EOM: EOMs intact bilaterally Neck: Neck: normal visual inspection, no lymphadenopathy and trachea midline Chest: Chest palpation & inspection: normal inspection of the chest Resp: Effort & Inspection: normal respiratory effort Auscultation: clear to auscultation bilaterally Cardio: Jugular venous distension: no JVD Rate: regular rate Rhythm: regular rhythm Heart sounds: S1 normal heart sound present and S2 normal heart sound present Peripheral pulses: Peripheral pulses 2+ throughout GI: Inspection: normal to inspection GI Palp: Yes Soft to palpation, No Tenderness to palpation present (GI), No Guarding due to palpation present (GI), Yes Hernia present umbilical < 3 cm and No Rebound tenderness present Percussion: Yes normal to percussion Auscultation: normal bowel sounds : General: Yes no CVA tenderness Scrotum: inguinal hernia bilateral Back/Spine/Pelvis: Back: no CVA tenderness Neuro: General: patient oriented x3, no focal motor deficits and CN's II-XI intact bilaterally Cognition (Neuro): normal cognition Speech: normal speech Motor exam (neuro): 5/5 motor strength present throughout Extrem: General: capillary refill normal and no clubbing, cyanosis or edema Assessment and Plan Assessment and plan (1) Bilateral inguinal hernia: Qualifiers: Obstruction and gangrene presence: without obstruction or gangrene Recurrence: non-recurrent Qualified Code(s): K40.20 - Bilateral inguinal hernia, without obstruction or gangrene, not specified as recurrent Code(s): K40.20 - Bilateral inguinal hernia, without obstruction or gangrene, not specified as recurrent Status: Acute Assessment and Plan: I have recommended laparoscopic bilateral inguinal hernia repair with mesh, da Reji assisted, and open umbilical hernia repair. I have discussed the procedure, risks, benefits, and alternatives with the patient. All questions answered. No changes since last seen in office. (2) Umbilical hernia: Qualifiers: Obstruction and gangrene presence: without obstruction or gangrene Qualified Code(s): K42.9 - Umbilical hernia without obstruction or gangrene Code(s): K42.9 - Umbilical hernia without obstruction or gangrene Status: Acute
--- NOTE | 2024-09-02 09:05 | WPDHPUPDATE1 ---
History and Physical Update Update Date/Time: 09/02/24 09:05 History and Physical has been reviewed, including an updated exam of the patient. There are NO changes in the patient's condition. Risks, benefits, and alternatives have been discussed and questions answered. Patient agrees to proceed with procedure.
--- NOTE | 2024-09-02 09:17 | P.PNAN_ITS ---
Anes - Initial Pre Proc Eval Procedure: Operation Date: 09/02/24 09:30 Proposed Procedures p Laparoscopic Bilateral Inguinal Hernia Repair, Davinci Assisted - Prosper Garrett DO s Open Repair Umbilical Hernia - Prosper Garrett DO Date/Time: 09/02/24 09:17 Surgeon: Prosper Garrett DO Pre Op Diagnosis: bilat inguinal hernia, 1cm umbiical hernia Patient Data Age: 44 Gender: M Height: 1.83 m Weight: 105.4 kg Last Vital Signs Temp 97.5 F L 09/02/24 07:45 Pulse 76 09/02/24 07:45 Resp 16 09/02/24 07:45 BP 136/67 09/02/24 07:45 Pulse Ox 98 09/02/24 07:45 O2 Del Method Room Air 09/02/24 07:45 Allergies Allergy/AdvReac Type Severity Reaction Status Date / Time No Known Allergies Allergy Verified 09/02/24 08:06 Home Medications ?Medication ?Instructions ?Recorded ?Confirmed ?Type aspirin 81 mg tablet,delayed 81 mg PO DAILY 09/15/21 09/02/24 History release omega-3 fatty acids-vitamin E 1 cap PO DAILY 09/15/21 09/02/24 History 1,000 mg capsule blood sugar diagnostic (OneTouch #100 ea 02/24/24 08/24/24 Rx Ultra Test strips) pen needle, diabetic 32 gauge x #100 ea 03/23/24 08/24/24 Rx 5/32 (TRUEplus Pen Needle) simvastatin 20 mg tablet See Rx Instructions .Route 04/03/24 09/02/24 Rx .COMPLEX #90 tabs metoprolol succinate 25 mg See Rx Instructions .Route 05/26/24 09/02/24 Rx tablet,extended release 24 hr .COMPLEX #90 tabs paroxetine HCl 40 mg tablet See Rx Instructions .Route 05/26/24 09/02/24 Rx .COMPLEX #180 tabs nicotine 21 mg/24 hr daily 1 patch transdermal DAILY #28 ea 06/03/24 08/24/24 Rx transdermal patch sildenafil 100 mg tablet (Viagra) 100 mg PO DAILY PRN sexual 06/22/24 08/24/24 Rx activity #30 tabs omeprazole 40 mg capsule,delayed See Rx Instructions .Route 07/06/24 09/02/24 Rx release .COMPLEX #90 caps insulin glargine 100 unit/mL (3 30 unit (0.3 mL) subcut QPM #15 mL 08/06/24 09/02/24 Rx mL) subcutaneous pen (Lantus Solostar U-100 Insulin) methocarbamol 500 mg tablet See Rx Instructions .Route 08/06/24 08/24/24 Rx .COMPLEX #30 tabs alprazolam 1 mg tablet 1 mg PO BID PRN anxiety #60 tabs 08/07/24 08/24/24 Rx albuterol sulfate 90 mcg/actuation See Rx Instructions .Route 08/31/24 Rx aerosol inhaler .COMPLEX #18 grams semaglutide 0.25 mg or 0.5 mg (2 0.5 mg (0.736 mL) subcut WEEKLY #3 08/31/24 Rx mg/3 mL) subcutaneous pen injector mL (Ozempic) Laboratory Tests 09/02/24 08:23 POC Capillary Glucose 118 H mg/dl (65-105) Patient hx anesthesia problems: none Family hx anesthesia problems: none Results Review: All pre-operative results and documents have been reviewed as part of the pre- operative evaluation. [facility] Past Medical History Medical History Sleep apnea IBS (irritable bowel syndrome) GERD (gastroesophageal reflux disease) Asthma Hypertension Hyperlipidemia Diabetes Surgical History Surgical History History of removal of retained hardware (~09/19/21) Rt Ankle, with Incision & Drainage History of open reduction and internal fixation (ORIF) procedure (~09/29/20) Ankle Status post ORIF of fracture of ankle H/O shoulder surgery Rt shoulder Hx of adenoidectomy Hx of tonsillectomy Family History Family History Mother Family history of mental disorder Hypertension Father Hypertension Family history of elevated blood lipids Alcoholism Social History Social History Smoking packs per day: 1 Smoking cigarettes per day: 20.0 Years smoked: 20 Smoking pack-years: 20.00 Smoking status: Current every day smoker Tobacco type: cigarettes Second hand tobacco smoke exposure: Yes Smoking end date: 05/06/09 Alcohol intake: current Drinks per week: 1 Alcohol use details: 5/MONTH Substance use: current Substance use type: marijuana Other substance usage details: Not every day. Last use: 03/24/21 Living arrangements: with family Additional living arrangements comments: Occupation/Education: occupation Gender identity (if verbalized by the patient): Male Sexual Orientation (if Verbalized by the Patient): Straight or Heterosexual Spiritual care concerns: No Agree to blood products: Yes Anes - Eval Final PreProcedure Day of Procedure 09/02/24 09:17 Patient weight: obese Lungs: normal air movement Airway: Mallampati scale class II Neurological: alert and oriented Last oral intake: >/= 8 hours ASA classification: III Emergent: no Anesthetic plan: proceed Anesthesia type and monitoring: general ETT and standard monitoring Results Review: All pre-operative results and documents have been reviewed as part of the pre- operative evaluation. Smoker, 1 ppd 20 years, OPAL on CPAP, HTN, hyperlipidemia, DM fsbs 118. Informed Consent: The patient's anesthetic plan and its attendant risks and benefits were discussed with the patient/family/POA. Questions were solicited and answers provided to the satisfaction of the patient/family/POA.
[2024-09-02] MEDS: ceFAZolin 2 GM/D5W 50 ML 2 GM/50 ML BAG IVPB (09:26)
--- NOTE | 2024-09-02 11:24 | W.PM.PROC2 ---
Procedure Note - Detailed Date of Procedure 09/02/24 Pre-op Diagnosis bilateral inguinal hernia, umbilical hernia Post-op Diagnosis Same (Bilateral indirect inguinal hernia, 1 cm umbilical hernia) Procedure Performed 1. Laparoscopic bilateral inguinal hernia repair with mesh, da Reji assisted 2. Open 1 cm umbilical hernia repair Surgeon Prosper Garrett DO Anesthesia General and Local (0.5% bupivacaine with epinephrine) Indications This is a 44-year-old man who presented with predominantly right groin pain but occasionally noticed some left groin pain as well. The right groin pain had been bothering him for several months. He had an ultrasound and CT that were inconclusive. A hernia was difficult to palpate on exam. He then underwent MRI of the pelvis which showed evidence of bilateral inguinal hernias and a small umbilical hernia. Discussions were made with the patient about treatment options and decision was made to proceed with robotic assisted laparoscopic bilateral inguinal hernia repair with mesh, and open umbilical hernia repair. Findings Robotic assisted laparoscopic bilateral inguinal hernia repair with mesh was performed. The patient was found to have bilateral indirect inguinal hernias and also had a cord lipoma bilaterally. A robotic transabdominal preperitoneal approach was utilized for repair. The cord lipomas were reduced and a wide enough preperitoneal pocket was created. A large 3DMax mid mesh was placed over each myopectineal orifice. No specimens were obtained for pathology. At the conclusion of this portion of the procedure I then extended the incision in the supraumbilical region and repaired the umbilical hernia. This appeared to be a 1 cm umbilical hernia containing some omentum and preperitoneal fat. The hernia sac was excised and discarded. The umbilical hernia was then closed with 0 Ethibond [id number] sutures. Description of Procedure Procedure as well as risks, benefits, and alternatives were discussed with the patient. Written consent was obtained and placed in chart prior to procedure. Patient was brought back to surgical suite. He was placed supine on operating table. Time-out was done to confirm patient and procedure. He was then intubated by Anesthesia Department. His abdomen was prepped and draped in sterile fashion using chlorhexidine prep. 0.5% bupivacaine with epinephrine was infiltrated at each location for incision. An 8 mm incision was made in the left lateral abdomen, and a 5 mm Optiview trocar was advanced through the abdominal layers under direct visualization. Once inside the abdominal cavity, carbon dioxide insufflation was used to create a pneumoperitoneum. A camera was inserted and the abdominal cavity was inspected. The patient was placed in slight Trendelenburg position. An 8 millimeter incision was made on the right lateral abdomen and an 8 millimeter trocar was inserted under direct visualization. Another 8 millimeter incision was made just superior to the umbilicus and an 8 millimeter trocar was inserted under direct visualization. The 5 mm port was then removed and this was replaced with another 8 mm robotic port. The robotic arms were brought up to the patient's bedside and secured to the ports. The camera and instruments were inserted. I then moved over to the robotic console and took control of the camera and instruments. After careful inspection of the abdominal cavity, I began scoring the peritoneum along the right lower quadrant using scissors with electrocautery. The preperitoneal plane was entered and this was carefully dissected caudally along the inferior epigastric vessels. Careful dissection with scissors with electrocautery and blunt dissection was used to continue this dissection. I dissected far enough laterally to allow for mesh placement, and also dissected medially to identify the pubic arch and Jose's ligament. The hernia sac was identified and carefully dissected posteriorly. The cord contents were also identified and the peritoneum was carefully dissected far enough posteriorly to allow for mesh placement. Once an adequate pocket was created, I then placed the mesh within the preperitoneal pocket and carefully unfolded it. The mesh was centered on the hernia defect with adequate overlap circumferentially. The inferior edge of the mesh was inspected to ensure that it was far enough away from the peritoneal edge. The mesh appeared in proper position overlying the entire myopectineal orifice. The mesh was secured using 3-0 Vicryl simple interrupted sutures in Jose's ligament, the superior medial edge, and superior lateral edge of the mesh. The peritoneum was then closed over the mesh using a 3-0 V-lock running absorbable suture. I then began scoring the peritoneum along the left lower quadrant using scissors with electrocautery. The preperitoneal plane was entered and this was carefully dissected caudally along the inferior epigastric vessels. Careful dissection with scissors with electrocautery and blunt dissection was used to continue this dissection. I dissected far enough laterally to allow for mesh placement, and also dissected medially to identify the pubic arch and Jose's ligament. The hernia sac was identified and carefully dissected posteriorly. The cord contents were also identified and the peritoneum was carefully dissected far enough posteriorly to allow for mesh placement. Once an adequate pocket was created, I then placed the mesh within the preperitoneal pocket and carefully unfolded it. The mesh was centered on the hernia defect with adequate overlap circumferentially. The inferior edge of the mesh was inspected to ensure that it was far enough away from the peritoneal edge. The mesh appeared in proper position overlying the entire myopectineal orifice. The mesh was secured using 3-0 Vicryl simple interrupted sutures in Jose's ligament, the superior medial edge, and superior lateral edge of the mesh. The peritoneum was then closed over the mesh using a 3-0 V-lock running absorbable suture. The robotic instruments were removed. The robotic arms were disengaged from the ports and moved away from the bedside. The patient was flattened out in bed, the ports were removed under direct visualization, and the pneumoperitoneum was released. I then extended the supraumbilical incision to about 3 cm wide using a 15 blade scalpel. Electrocautery was then used for hemostasis and for dissection through the subcutaneous tissue. The hernia sac was identified and carefully dissected free all the way down to the level of the fascia. The hernia sac was excised and discarded. The hernia defect measured 1 cm. This was then repaired using 0 Ethibond [id number] sutures. A total of 3 sutures were placed in a vertical fashion to approximate the fascia. The repair was inspected and appeared secure. The deep dermis was then reapproximated using 3-0 Vicryl inverted interrupted sutures. The skin of the incisions was approximated using 4-0 Monocryl subcuticular suture, and Exofin glue was applied on top. The patient was awakened from anesthesia, extubated, and transferred to recovery. Implants Large right and left 3DMax mid mesh Estimated Blood Loss 10 Complications No immediate complications Condition Stable Disposition Same day [facility] Billing Surgery - Charge Forward: Surgery Billing
[2024-09-02] MEDS: fentaNYL CITRATE INJ (*CRX) 100 MCG/2 ML VIAL 25 MCG IV PUSH ×5 (11:37→12:47)
[2024-09-02 11:56] LABS: Glucose Point of Care 154 mg/dl (65-105)
[2024-09-02] MEDS: oxyCODONE HCL (*CRX) 5 MG TAB IR PO (12:57)
--- NOTE | 2024-09-02 13:58 | SUR.PHASEII ---
1320: waiting on ride. ready for dc.
== END 2024-09-02 13:54 | disposition home or self-care (01) ==
PROVIDERS: PCP Nurse Practitioner Family; Visit Provider Surgery
PROC: 8E0Y4CZ Robotic Assisted Procedure of Lower Extremity, Percutaneous Endoscopic Approach (ICD-10-PCS; CPT 49650; principal; 2024-09-02 09:30)
PROC: (CPT 49650; 2024-09-02 09:30)
DX: K40.20 Bilateral inguinal hernia, without obstruction or gangrene, not specified as recurrent (principal); K42.9 Umbilical hernia without obstruction or gangrene; D17.6 Benign lipomatous neoplasm of spermatic cord; E78.5 Hyperlipidemia, unspecified; I10 Essential (primary) hypertension; E11.9 Type 2 diabetes mellitus without complications; J45.909 Unspecified asthma, uncomplicated; K21.9 Gastro-esophageal reflux disease without esophagitis; K58.9 Irritable bowel syndrome, unspecified; F17.210 Nicotine dependence, cigarettes, uncomplicated; F12.90 Cannabis use, unspecified, uncomplicated; G47.33 Obstructive sleep apnea (adult) (pediatric); Z99.89 Dependence on other enabling machines and devices; Z79.82 Long term (current) use of aspirin; Z79.4 Long term (current) use of insulin; Z79.51 Long term (current) use of inhaled steroids; Z79.85 Long-term (current) use of injectable non-insulin antidiabetic drugs; Z98.890 Other specified postprocedural states
CPT/HCPCS: 49650; 49591; S2900; 82948; A9270; C1781; J0690; J1100; J1885; J2250; J2405; J2704; J3010; J7120